=== PATIENT | female | born 1970 | race African-American/Black ===

== ENCOUNTER → 2017-10-13 | Outpatient (CLI) | payer BC, OTHER ==
[~2017-10-13] MED LIST: AMOX-355 PO; ATEN50TA PO; ATN50T PO; CARI350T27 PO; CHOL200014 PO; CHOL20003 PO; CYAN5000 SL; CYCL-97; DICL75TA2 PO; EXEN10PE4 SQ; GLYB1.253 PO; HCTZ12.5T PO; HYDR-2997 PO; HYDR-31; HYDR12.5 PO; INSU300I SC; LISI10TA2 PO; LOVA10TA PO; MECO5000 PO; METF-380; METH4TAB PO; MULT-301 PO; OMEP-10 PO; OMEP40CA36 PO; OXYC10TA7 PO; PHEN37.53; PREN-94 PO; SUCR1TAB PO; SUCR1TAB36 PO
--- NOTE | 2017-10-13 14:16 | Diagnostic Imaging Report ---
INDICATION: Screening. COMPARISON: 08/27/2015, 08/24/2014, and 08/15/2013. TECHNIQUE: Screening digital mammography was performed bilaterally with a Computer Aided Detection (CAD) system. FINDINGS: There is a moderate amount of residual fibroglandular tissue bilaterally. There are a few benign type calcifications. There is no dominant mass, spiculated lesion, or suspicious calcification identified. The skin, nipples, and axillae are unremarkable. IMPRESSION: Benign findings. ACR BI-RADS Category 2: Benign findings. Result letter will be mailed to the patient. Note: At least 10% of breast cancer is not imaged by mammography. Dictated by: Dictated on workstation # [id number]
== END ==
LOC: RAD 09:55
PROVIDERS: ATTEND Internal Medicine
DX: Z12.31 Encounter for screening mammogram for malignant neoplasm of breast (principal)
CPT/HCPCS: 77067

== ENCOUNTER 2018-07-24 14:26 | Emergency (ER) | payer BC ==
[~2018-07-24] VITALS: Ht 160 cm; Wt 142.9 kg
[~2018-07-24 14:26] MED LIST changes: -CHOL200014 PO; +CHOL200085 PO
[2018-07-24 14:59] LABS: BASOPHILS % (AUTO) 0 % (0-10); EOSINOPHILS # (AUTO) 0.5 10^3/uL (0.0-0.3); EOSINOPHILS % (AUTO) 7 % (0-10); HEMATOCRIT 39 % (35-52); HEMOGLOBIN 12.9 G/DL (11.5-16.0); LYMPHOCYTES # (AUTO) 2.4 X 10^3 (1.0-4.0); LYMPHOCYTES % (AUTO) 30 % (12-44); MEAN CORPUSCULAR HEMOGLOBIN 28 PG (25-34); MEAN CORPUSCULAR HGB CONC 33 G/DL (32-36); MEAN CORPUSCULAR VOLUME 86 FL (80-99); MEAN PLATELET VOLUME 10.6 FL (7.4-10.4); MONOCYTES # (AUTO) 0.8 X 10^3 (0.0-1.0); MONOCYTES % (AUTO) 10 % (0-12); NEUTROPHILS # (AUTO) 4.3 X 10^3 (1.8-7.8); NEUTROPHILS % (AUTO) 54 % (42-75); PLATELET COUNT 344 10^3/uL (130-400); RED BLOOD COUNT 4.57 10^6/uL (4.35-5.85); RED CELL DISTRIBUTION WIDTH 14.2 % (10.0-14.5)
[2018-07-24] MEDS ORDERED: ONDANSETRON 4 MG/2 ML (SDV) Z0FRAN IVP ONE (15:00)
[2018-07-24] MEDS ORDERED: ANTACID SUSP 30 ML UDC (MYLANTA) PO ONE (15:00)
[2018-07-24] MEDS ORDERED: LIDOCAINE 2% VISCOUS 15 ML UDC PO ONE (15:00)
[2018-07-24 15:03] LABS: BILIRUBIN,URINE NEGATIVE (NEGATIVE); CLARITY,URINE CLEAR; COLOR,URINE YELLOW; GLUCOSE, URINE (UA) 3+ (NEGATIVE); KETONES,URINE NEGATIVE (NEGATIVE); LEUKOCYTE ESTERASE ,URINE NEGATIVE (NEGATIVE); NITRITE,URINE NEGATIVE (NEGATIVE); PH,URINE 5 (5-9); PROTEIN,URINE NEGATIVE (NEGATIVE); UROBILINOGEN,URINE NORMAL (NORMAL)
--- NOTE | 2018-07-24 15:09 | ED Abdominal Pain ---
General Chief Complaint: Abdominal/GI Problems Stated Complaint: UPPER ABDOMINAL PAIN Nursing Triage Note: PT CO OF ABD PAIN R UPPER ABD AND EPIGASTRIC AREA STARTED THURSDAY HAS NAUSEA BUT NO VOMITING OR DIARRHEA. PT HAS BEEN ON AUGEMENTIN BUT STOPPED THOUGHT IT MIGHT HAVE BEEN CAUSING PAIN Sepsis Screen: No Definite Risk Source of Information: Patient Exam Limitations: No Limitations History of Present Illness Date Seen by Provider: Jul 24, 2018 Time Seen by Provider: 14:43 Initial Comments This 48-year-old woman presents to the emergency room with complaints of upper abdominal pain in the epigastric and right upper quadrant regions. Her gallbladder is surgically absent. She has had associated nausea without vomiting. Symptoms have been present for about 5 days. She denies fever. She denies constipation or diarrhea. She had been taking Augmentin for some sinus symptoms but stopped that a few days ago and symptoms have not improved. Allergies and Home Medications Allergies Coded Allergies: No Known Drug Allergies (Unverified , 04/03/16) Home Medications Amoxicillin/Potassium Clav 1 Each Tablet, 1 EACH PO BID Prescribed by: JUSTINO MAXWELL on 04/04/16 0950 Atenolol 50 Mg Tablet, 50 MG PO DAILY, (Reported) Carisoprodol 350 Mg Tablet, 350 MG PO TID, (Reported) Cholecalciferol (Vitamin D3) 2,000 Unit Capsule, 2,000 UNIT PO DAILY, (Reported) Cyanocobalamin (Vitamin B-12) 5,000 Mcg Tab.subl, 5,000 MCG SL DAILY, (Reported) Diclofenac Sodium 75 Mg Tablet.dr, 75 MG PO BID, (Reported) Glyburide 1.25 Mg Tablet, 1.25 MG PO BID, (Reported) Hydrochlorothiazide 12.5 Mg Capsule, 12.5 MG PO DAILY, (Reported) LAST FILLED #90 07-30-15 Insulin Glargine,Hum.rec.anlog 300 Unit/1 Ml Insuln.pen, 55 UNITS SC HS, ( Reported) LAST FILLED 11-28-15 Lisinopril 10 Mg Tablet, 10 MG PO DAILY, (Reported) Lovastatin 10 Mg Tablet, 10 MG PO DAILY, (Reported) Omeprazole 40 Mg Capsule.dr, 40 MG PO DAILY, (Reported) Oxycodone HCl 10 Mg Tablet, 10 MG PO QID PRN for PAIN, (Reported) Vits #90/Iron Fum/FA 1 Each Tablet, 1 TAB PO DAILY, (Reported) Sucralfate 1 Gm Tablet, 1 GM PO BID, (Reported) LAST FILLED #120 09-04-15 Patient Home Medication List Home Medication List Reviewed: Yes Review of Systems Review of Systems Constitutional: no symptoms reported EENTM: No Symptoms Reported Respiratory: No Symptoms Reported Cardiovascular: No Symptoms Reported Gastrointestinal: See HPI Genitourinary: No Symptoms Reported Musculoskeletal: no symptoms reported Skin: no symptoms reported Psychiatric/Neurological: No Symptoms Reported Endocrine: No Symptoms Reported Hematologic/Lymphatic: No Symptoms Reported Past Vqabmli-Orotji-Nuissd Hx Past Med/Social Hx: Reviewed Nursing Past Med/Soc Hx Patient Social History Alcohol Use: Denies Use Recreational Drug Use: No Smoking Status: Never a Smoker Recent Foreign Travel: No Contact w/Someone Who Travel: No Recent Infectious Disease Expo: No Recent Hopitalizations: No (HYSTERECTOMY AND 2 C-SECTIONS) Physical Abuse: No Sexual Abuse: No Past Medical History Surgeries: Yes ( ABOVE) Gallbladder, Hysterectomy, Orthopedic, Tubal Ligation Respiratory: Yes Sleep Apnea Currently Using CPAP: No Currently Using BIPAP: Yes Cardiac: Yes High Cholesterol, Hypertension Neurological: No Reproductive Disorders: No Female 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 0.0oz. 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, no motor/sensory deficits, alert, normal mood/affect, oriented x 3 Skin: normal color, warm/dry Progress/Results/Core Measures Results/Orders Lab Results Laboratory Tests Test 07/24/18 14:20 07/24/18 14:58 Range/Units White Blood Count 8.0 4.3-11.0 10^3/uL Red Blood Count 4.57 4.35-5.85 10^6/uL Hemoglobin 12.9 11.5-16.0 G/DL Hematocrit 39 35-52 % Mean Corpuscular Volume 86 80-99 FL Mean Corpuscular Hemoglobin 28 25-34 PG Mean Corpuscular Hemoglobin Concent 33 32-36 G/DL Red Cell Distribution Width 14.2 10.0-14.5 % Platelet Count 344 130-400 10^3/uL Mean Platelet Volume 10.6 H 7.4-10.4 FL Neutrophils (%) (Auto) 54 42-75 % Lymphocytes (%) (Auto) 30 12-44 % Monocytes (%) (Auto) 10 0-12 % Eosinophils (%) (Auto) 7 0-10 % Basophils (%) (Auto) 0 0-10 % Neutrophils # (Auto) 4.3 1.8-7.8 X 10^3 Lymphocytes # (Auto) 2.4 1.0-4.0 X 10^3 Monocytes # (Auto) 0.8 0.0-1.0 X 10^3 Eosinophils # (Auto) 0.5 H 0.0-0.3 10^3/uL Basophils # (Auto) 0.0 0.0-0.1 10^3/uL Sodium Level 141 135-145 MMOL/L Potassium Level 4.1 3.6-5.0 MMOL/L Chloride Level 106 98-107 MMOL/L Carbon Dioxide Level 24 21-32 MMOL/L Anion Gap 11 5-14 MMOL/L Blood Urea Nitrogen 14 7-18 MG/DL Creatinine 0.79 0.60-1.30 MG/DL Estimat Glomerular Filtration Rate > 60 BUN/Creatinine Ratio 18 Glucose Level 216 H 70-105 MG/DL Calcium Level 9.4 8.5-10.1 MG/DL Corrected Calcium 9.3 8.5-10.1 MG/DL Total Bilirubin 0.2 0.1-1.0 MG/DL Aspartate Amino Transf (AST/SGOT) 18 5-34 U/L Alanine Aminotransferase (ALT/SGPT) 26 0-55 U/L Alkaline Phosphatase 88 40-136 U/L Total Protein 7.7 6.4-8.2 GM/DL Albumin 4.1 3.2-4.5 GM/DL Lipase 207 H 8-78 U/L Urine Color YELLOW Urine Clarity CLEAR Urine pH 5 5-9 Urine Specific [place] 1.025 H 1.016-1.022 Urine Protein NEGATIVE NEGATIVE Urine Glucose (UA) 3+ H NEGATIVE Urine Ketones NEGATIVE NEGATIVE Urine Nitrite NEGATIVE NEGATIVE Urine Bilirubin NEGATIVE NEGATIVE Urine Urobilinogen NORMAL NORMAL MG/DL Urine Leukocyte Esterase NEGATIVE NEGATIVE Urine RBC (Auto) NEGATIVE NEGATIVE Urine RBC NONE /HPF Urine WBC NONE /HPF Urine Squamous Epithelial Cells NONE /HPF Urine Crystals NONE /LPF Urine Bacteria NEGATIVE /HPF Urine Casts NONE /LPF Urine Mucus NEGATIVE /LPF Urine Culture Indicated NO My Orders Orders - VINCE PATTON MD Cbc With Automated Diff (07/24/18 14:53) Comprehensive Metabolic Panel (07/24/18 14:53) Lipase (07/24/18 14:53) Ua Culture If Indicated (07/24/18 14:53) Saline Lock/Iv-Start (07/24/18 14:53) Ondansetron Injection (Zofran Injectio (07/24/18 15:00) Lidocaine 2% Viscous 15 Ml (Xylocaine Vi (07/24/18 15:00) Antacid Suspension (Mylanta Suspension (07/24/18 15:00) Fentanyl Injection (Sublimaze Injection (07/24/18 15:45) Fentanyl Injection (Sublimaze Injection (07/24/18 15:32) Oxycodone/Apap 5/325mg Tablet (Percocet (07/24/18 16:15) Saline Lock/Iv-Start (07/24/18 16:13) Lactated Ringers (Lr 1000 Ml Iv Solution (07/24/18 16:13) Lactated Ringers (Lr 1000 Ml Iv Solution (07/24/18 16:10) Fentanyl Injection (Sublimaze Injection (07/24/18 17:15) Ct Abdomen/Pelvis W (07/24/18 17:13) Iohexol Injection (Omnipaque 350 Mg/Ml 1 (07/24/18 17:30) Sodium Chloride Flush (Catheter Flush Sy (07/24/18 17:30) Ns (Ivpb) (Sodium Chloride 0.9%) (07/24/18 17:30) Pharmacy Communication (Pharmacy Communi (07/24/18 17:24) Rx-Ondansetron Po (Rx-Zofran Po) (07/24/18 18:23) Medications Given in ED Current Medications Medications Dose Ordered Sig/Volodymyr Route Start Time Stop Time Status Last Admin Dose Admin Al Hydrox/Mg Hydrox/Simethicone 30 ml ONCE ONCE PO 07/24/18 15:00 07/24/18 15:01 DC 07/24/18 15:10 30 ML Fentanyl Citrate 50 mcg ONCE ONCE IVP 07/24/18 15:45 07/24/18 15:46 DC 07/24/18 15:38 50 MCG Fentanyl Citrate 75 mcg ONCE ONCE IVP 07/24/18 17:15 07/24/18 17:16 DC 07/24/18 17:30 75 MCG Iohexol 100 ml ONCE ONCE IV 07/24/18 17:30 07/24/18 17:31 DC 07/24/18 17:49 100 ML Lactated Ringer's 1,000 ml @ 0 mls/hr Q0M ONCE IV 07/24/18 16:13 07/24/18 16:15 DC 07/24/18 16:17 1,000 MLS/HR Lidocaine HCl 15 ml ONCE ONCE PO 07/24/18 15:00 07/24/18 15:01 DC 07/24/18 15:10 15 ML Ondansetron HCl 8 mg ONCE ONCE IVP 07/24/18 15:00 07/24/18 15:01 DC 07/24/18 15:10 8 MG Oxycodone/ Acetaminophen 1 tab ONCE ONCE PO 07/24/18 16:15 07/24/18 16:16 DC 07/24/18 16:15 1 TAB Sodium Chloride 10 ml NEEDED PRN IV 07/24/18 17:30 07/24/18 17:49 10 ML Sodium Chloride 250 ml ONCE ONCE IV 07/24/18 17:30 07/24/18 17:31 DC 07/24/18 17:49 80 ML Vital Signs/I&O 07/24/18 14:35 Temp 98.0 Pulse 84 Resp 18 B/P (MAP) 5/3 (4) Pulse Ox 99 Blood Pressure Mean: 4 Progress Progress Note #1: Time: 17:15 Progress Note GI cocktail did not improve her pain. In fact her pain seemed to intensify. Patient was initially given 50 g of fentanyl by IV route. This was followed by oral Percocet to see if symptoms could be managed with oral medications in preparation for discharge home. However, pain intensified and she was given an additional 75 g of fentanyl IV. Patient has received a total of 125 g of fentanyl to treat her pain. Because of the intensity of her pain, CT scan was felt appropriate. Patient is agreeable. There was a mild increase in lipase and early pancreatitis is also a consideration. 1 L of LR is infusing. Progress Note #2: Time: 18:26 Progress Note Patient's pain is now controlled. CT scan only showed fatty infiltrates of the liver. No other acute abnormalities were identified. Patient would now like to try returning home with a graduated GI rest. Cause of her elevated lipase is uncertain. Some of her medications including diclofenac, omeprazole, and hydrochlorothiazide to have pancreatitis listed as adverse reactions. Fatty liver disease could also explain her right upper quadrant pain. Diagnostic Imaging Diagonstic Imaging: CT Plain Films/CT/US/NM/MRI: abdomen, pelvis Comments CT abdomen and pelvis viewed by me and report reviewed. See report below: NAME: MARC GREEN REC#: [id number] PT STATUS: REG ER : 1970 PHYSICIAN: VINCE PATTON MD ADMIT DATE: 07/24/18/ER Draft Date of Exam:07/24/18 CT ABDOMEN/PELVIS W PROCEDURE: CT abdomen and pelvis with contrast. TECHNIQUE: Multiple contiguous axial images were obtained through the abdomen and pelvis after administration of intravenous contrast. INDICATION: Sharp right upper quadrant pain for four days. Nausea. Diarrhea. FINDINGS: There are mild fatty changes of the liver with no focal liver abnormality seen. Gallbladder is absent. The bile ducts are not dilated. The spleen, pancreas and adrenals are normal. The kidneys, ureters and bladder are normal. No acute bowel abnormality is seen. There is no free intraperitoneal air or fluid. There is no acute bony abnormality. IMPRESSION: There are fatty infiltrates of the liver with no acute abnormality seen. Dictated on workstation # [id number] Dict: 07/24/18 1759 Trans: 07/24/18 1804 [facility] [id number] Interpreted by: ROSALVA MURRY MD Departure Impression Primary Impression: Epigastric pain Additional Impressions: Right upper quadrant pain Nausea Fatty infiltration of liver Elevated lipase Disposition: 01 HOME, SELF-CARE Condition: Improved Departure-Patient Inst. Decision time for Depature: 18:27 Referrals: JUSTINO MAXWELL DO (PCP/Family) Primary Care Physician Patient Instructions: Nonalcoholic Fatty Liver Disease (DC) Add. Discharge Instructions: Do not eat or drink tonight. Tomorrow observe a clear liquid diet for 24 hours. Then gradually advance your diet with a small amount of bland food as tolerated. Avoid fatty or greasy foods, alcohol, spicy foods, or anything else that irritate your stomach. Return to care if symptoms worsen again. Uses Zofran (ondansetron) dissolved under the tongue every 4 hours as needed for nausea and vomiting. You may use Percocet every 4 hours as needed for management of pain. Follow-up with your primary care provider as soon as possible. All discharge instructions reviewed with patient and/or family. Voiced understanding. Scripts Ondansetron (Zofran Odt) 4 Mg Tab.rapdis 4 MG SL Q4H PRN for NAUSEA/VOMITING-1ST LINE, #10 TAB Prov: VINCE PATTON MD 07/24/18 Hydrocodone/Acetaminophen (Hydrocodone-Acetamin 5-325 mg) 1 Each Tablet 1 EACH PO Q4-6HR PRN for PAIN-MODERATE, #10 TAB Prov: VINCE PATTON MD 07/24/18 Copy Copies To 1: JUSTINO MAXWELL JOSHUA T MD Jul 24, 2018 15:09
[2018-07-24 15:13] LABS: ALANINE AMINOTRANSFERASE 26 U/L (0-55); ALBUMIN 4.1 GM/DL (3.2-4.5); ALKALINE PHOSPHATASE 88 U/L (40-136); BILIRUBIN,TOTAL 0.2 MG/DL (0.1-1.0); BUN/CREATININE RATIO 18; CALCIUM 9.4 MG/DL (8.5-10.1); CARBON DIOXIDE 24 MMOL/L (21-32); CHLORIDE 106 MMOL/L (98-107); CREATININE SERUM 0.79 MG/DL (0.60-1.30); GFR ESTIMATED > 60; GLUCOSE 216 MG/DL (70-105); LIPASE 207 U/L (8-78); POTASSIUM 4.1 MMOL/L (3.6-5.0); SODIUM 141 MMOL/L (135-145); TOTAL PROTEIN 7.7 GM/DL (6.4-8.2)
[2018-07-24 15:27] LABS: BACTERIA,URINE NEGATIVE /HPF
[2018-07-24] MEDS ORDERED: fentaNYL INJECTION 100 MCG/2 ML AMP ONE (15:32)
[2018-07-24] MEDS ORDERED: fentaNYL INJECTION 100 MCG/2 ML AMP IVP ONE ×2 (15:45→17:15)
[2018-07-24] MEDS ORDERED: LACTATED RINGERS 1,000 ML IV ONE ×2 (16:10→16:13)
[2018-07-24] MEDS ORDERED: oxyCODONE/APAP 5/325MG (PERCOCET 5) TABLET PO ONE (16:15)
[2018-07-24] MEDS ORDERED: CATHETER FLUSH 10 ML SYR IV PRN (17:30)
[2018-07-24] MEDS ORDERED: NS 250 ML (IVPB) BAG IV ONE (17:30)
[2018-07-24] MEDS ORDERED: IOHEXOL 350 MG/ML 100 ML (OMNIPAQUE 350) VIAL IV ONE (17:30)
--- NOTE | 2018-07-24 18:05 | Diagnostic Imaging Report ---
PROCEDURE: CT abdomen and pelvis with contrast. TECHNIQUE: Multiple contiguous axial images were obtained through the abdomen and pelvis after administration of intravenous contrast. INDICATION: Sharp right upper quadrant pain for four days. Nausea. Diarrhea. FINDINGS: There are mild fatty changes of the liver with no focal liver abnormality seen. Gallbladder is absent. The bile ducts are not dilated. The spleen, pancreas and adrenals are normal. The kidneys, ureters and bladder are normal. No acute bowel abnormality is seen. There is no free intraperitoneal air or fluid. There is no acute bony abnormality. IMPRESSION: There are fatty infiltrates of the liver with no acute abnormality seen. Dictated by: Dictated on workstation # [id number]
[2018-07-24] MEDS ORDERED: RX-ONDANSETRON 4 MG ODT (ZOFRAN) PPK #4 SL STA (18:23)
[2018-07-24] MEDS ORDERED: RX-OXYCODONE/APAP 5-325 MG #4 TAB PK PO PRN (18:30)
[2018-07-24] MEDS ORDERED: ONDA4TAB8 SL (18:31)
[2018-07-24] MEDS ORDERED: HYDR-3812 PO (18:31)
[2018-07-24] MEDS ORDERED: RX-OXYCODONE/APAP 5-325 MG #4 TAB PK PO ONE (18:55)
[2018-07-24 18:56] VITALS: BP 165/78
== END 2018-07-24 18:56 | disposition home or self-care (01) ==
LOC: EDUNIT# 14:26 → ER 14:28
DX: K76.0 Fatty (change of) liver, not elsewhere classified (principal); R10.13 Epigastric pain; R74.8 Abnormal levels of other serum enzymes; G47.30 Sleep apnea, unspecified; E78.00 Pure hypercholesterolemia, unspecified; I10 Essential (primary) hypertension; K21.9 Gastro-esophageal reflux disease without esophagitis; E11.9 Type 2 diabetes mellitus without complications; Z79.4 Long term (current) use of insulin; Z90.89 Acquired absence of other organs; Z90.710 Acquired absence of both cervix and uterus; Z98.890 Other specified postprocedural states; Z98.51 Tubal ligation status
CPT/HCPCS: 36415; 74177; 80053; 81000; 83690; 85025

== ENCOUNTER 2018-07-26 10:38 | Inpatient (IN) | payer BC ==
[~2018-07-26] VITALS: Ht 160 cm; Wt 149.7 kg
[~2018-07-26 10:38] MED LIST changes: +HYDR-3812 PO; +ONDA4TAB8 SL
[2018-07-26 11:23] VITALS: BP 158/83
[2018-07-26] MEDS: NS IV 1000 ML 1,000 ML IV SCH ×2 (12:14→20:24)
[2018-07-26] MEDS ORDERED: CATHETER FLUSH 10 ML SYR IV PRN (12:15)
[2018-07-26 12:19] LABS: BILIRUBIN,URINE NEGATIVE (NEGATIVE); CLARITY,URINE CLEAR; COLOR,URINE YELLOW; GLUCOSE, URINE (UA) 4+ (NEGATIVE); KETONES,URINE NEGATIVE (NEGATIVE); LEUKOCYTE ESTERASE ,URINE NEGATIVE (NEGATIVE); NITRITE,URINE NEGATIVE (NEGATIVE); PH,URINE 6 (5-9); PROTEIN,URINE 1+ (NEGATIVE); UROBILINOGEN,URINE NORMAL (NORMAL)
[2018-07-26] MEDS: ONDANSETRON 4 MG/2 ML (SDV) Z0FRAN IVP PRN ×3 (12:23→19:43)
[2018-07-26] MEDS: HYDROmorphone 2 MG/ML VIAL (DILAUDID) IV PRN ×3 (12:24→23:05)
[2018-07-26 12:27] LABS: BACTERIA,URINE TRACE /HPF
[2018-07-26 12:42] LABS: AMPHETAMINE SCREEN, URINE NEGATIVE (NEGATIVE); BARBITURATE SCREEN URINE NEGATIVE (NEGATIVE); BENZODIAZEPINES SCREEN URINE NEGATIVE (NEGATIVE); CANNABINOID SCREEN, URINE NEGATIVE (NEGATIVE); COCAINE SCREEN URINE NEGATIVE (NEGATIVE); METHADONE STAT NEGATIVE (NEGATIVE); METHAMPHETAMINE SCREEN URINE S NEGATIVE (NEGATIVE); OPIATE SCREEN URINE NEGATIVE (NEGATIVE); OXYCODONE STAT NEGATIVE (NEGATIVE); PROPOXYPHENE STAT NEGATIVE (NEGATIVE); TRICYCLIC ANTIDEPRESSANTS SCRE NEGATIVE (NEGATIVE)
[2018-07-26 13:03] LABS: BASOPHILS % (AUTO) 0 % (0-10); EOSINOPHILS # (AUTO) 0.4 10^3/uL (0.0-0.3); EOSINOPHILS % (AUTO) 5 % (0-10); HEMATOCRIT 40 % (35-52); HEMOGLOBIN 13.2 G/DL (11.5-16.0); LYMPHOCYTES # (AUTO) 1.9 X 10^3 (1.0-4.0); LYMPHOCYTES % (AUTO) 25 % (12-44); MEAN CORPUSCULAR HEMOGLOBIN 28 PG (25-34); MEAN CORPUSCULAR HGB CONC 33 G/DL (32-36); MEAN CORPUSCULAR VOLUME 84 FL (80-99); MEAN PLATELET VOLUME 10.3 FL (7.4-10.4); MONOCYTES # (AUTO) 0.6 X 10^3 (0.0-1.0); MONOCYTES % (AUTO) 8 % (0-12); NEUTROPHILS # (AUTO) 4.8 X 10^3 (1.8-7.8); NEUTROPHILS % (AUTO) 62 % (42-75); PLATELET COUNT 345 10^3/uL (130-400); RED BLOOD COUNT 4.73 10^6/uL (4.35-5.85); RED CELL DISTRIBUTION WIDTH 14.1 % (10.0-14.5); WHITE BLOOD COUNT 7.7 10^3/uL (4.3-11.0)
[2018-07-26 13:23] LABS: ERYTHROCYTE SEDIMENTATION RATE 37 MM/HR (0-20)
[2018-07-26 13:24] LABS: ALANINE AMINOTRANSFERASE 22 U/L (0-55); ALBUMIN 4.1 GM/DL (3.2-4.5); ALKALINE PHOSPHATASE 84 U/L (40-136); AMYLASE 79 U/L (25-125); BILIRUBIN,TOTAL 0.3 MG/DL (0.1-1.0); BUN/CREATININE RATIO 12; CALCIUM 9.9 MG/DL (8.5-10.1); CARBON DIOXIDE 24 MMOL/L (21-32); CHLORIDE 102 MMOL/L (98-107); CREATININE SERUM 0.76 MG/DL (0.60-1.30); GFR ESTIMATED > 60; GLUCOSE 197 MG/DL (70-105); LIPASE 147 U/L (8-78); POTASSIUM 4.2 MMOL/L (3.6-5.0); SODIUM 138 MMOL/L (135-145); TOTAL PROTEIN 7.9 GM/DL (6.4-8.2)
[2018-07-26] MEDS ORDERED: GLYB2.5T4 PO (13:36)
[2018-07-26] MEDS: ENOXAPARIN 60 MG/0.6 ML (LOVENOX) SYR SC SCH (14:06)
--- NOTE | 2018-07-26 15:26 | Diagnostic Imaging Report ---
INDICATION: Right upper quadrant pain. TIME OF EXAMINATION: 2:53 PM. FINDINGS: There are surgical clips in the right upper quadrant. No free air is identified. The bowel gas pattern appears nonobstructive. There is a large amount of stool in the right colon. No pathologic calcifications are seen. IMPRESSION: Moderate stool in the right colon. No other significant abnormality is detected. Dictated by: Dictated on workstation # [id number]
--- NOTE | 2018-07-26 15:27 | Diagnostic Imaging Report ---
INDICATION: Right upper quadrant pain. TIME OF EXAMINATION: 2:48 PM. COMPARISON: 04/03/2016. FINDINGS: The heart size is normal. The pulmonary vascularity is unremarkable. The lungs are clear. No infiltrate, effusion, or pneumothorax is detected. IMPRESSION: No acute cardiopulmonary process is detected. Dictated by: Dictated on workstation # [id number]
[2018-07-26 15:38] VITALS: BP 166/70
[2018-07-26] MEDS ORDERED: FLU QUADRIvalent (5+ YOA) 2018-2019 (AFLURIA) 0.5 ML IM ONE (16:45)
--- NOTE | 2018-07-26 18:09 | Consultation ---
History of Present Illness History of Present Illness Patient Consulted On(amie/time) 07/26/18 18:04 Date Seen by Provider: Jul 26, 2018 Time Seen by Provider: 18:04 Reason for Visit: increasing epigastric pain of 6 days duration History of Present Illness sudden onset of epigastric pain about 6 days ago, leading to an ER evaluation revealing elevated lipase, suggestive of pancreatitis. She reports having undergone laparoscopic cholecystectomy to manage dyskinesia about 8 years ago. Currently, her LFTs are normal and therefore it is less likely that pancreatitis is related to primary choledocholithiasis Allergies and Home Medications Allergies Coded Allergies: No Known Drug Allergies (Unverified , 04/03/16) Home Medications Atenolol 50 Mg Tablet, 50 MG PO DAILY, (Reported) Carisoprodol 350 Mg Tablet, 350 MG PO TID, (Reported) Diclofenac Sodium 75 Mg Tablet.dr, 75 MG PO BID, (Reported) Glyburide 2.5 Mg Tablet, 2.5 MG PO BID, (Reported) Hydrochlorothiazide 12.5 Mg Capsule, 12.5 MG PO DAILY, (Reported) Hydrocodone/Acetaminophen 1 Each Tablet, 1 EACH PO Q4-6HR PRN for PAIN-MODERATE Prescribed by: VINCE VEGA on 07/24/181830 Insulin Glargine,Hum.rec.anlog 300 Unit/1 Ml Insuln.pen, 64 UNITS SC HS, ( Reported) Lisinopril 10 Mg Tablet, 10 MG PO DAILY, (Reported) Lovastatin 10 Mg Tablet, 10 MG PO DAILY, (Reported) Omeprazole 40 Mg Capsule.dr, 40 MG PO DAILY, (Reported) Ondansetron 4 Mg Tab.rapdis, 4 MG SL Q4H PRN for NAUSEA/VOMITING-1ST LINE Prescribed by: VINCE VEGA on 07/24/181830 Oxycodone HCl 10 Mg Tablet, 10 MG PO QID PRN for PAIN-SEVERE, (Reported) Sucralfate 1 Gm Tablet, 1 GM PO BID, (Reported) LAST FILLED #120 03-04-18 Patient Home Medication List Home Medication List Reviewed: Yes Past Urhrqda-Ycihqh-Dmohhv Hx Patient Social History Alcohol Use: Rarely Uses Number of Drinks Today: 0 Recreational Drug Use: No Smoking Status: Never a Smoker Recent Foreign Travel: No Contact w/Someone Who Travel: No Recent Infectious Disease Expo: No Recent Hopitalizations: No (HYSTERECTOMY AND 2 C-SECTIONS) Seasonal Allergies Seasonal Allergies: Yes Past Medical History Surgeries: Yes ( ABOVE) Gallbladder, Hysterectomy, Orthopedic, Tubal Ligation Respiratory: Yes Sleep Apnea Currently Using CPAP: Yes Currently Using BIPAP: Yes Cardiac: Yes High Cholesterol, Hypertension Neurological: No Reproductive Disorders: No Female 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 Sexually Transmitted Disease: No HIV/AIDS: No Genitourinary: Yes (Incontinence-leaking) Gastrointestinal: Yes Gastroesophageal Reflux Musculoskeletal: Yes Arthritis, Chronic Back Pain Endocrine: Yes Diabetes, Non-Insulin dep Loss of Vision: Denies Hearing Impairment: Denies Cancer: No Psychosocial: No Integumentary: No Blood Disorders: No Family Medical History DENIES Review of Systems-General EENTM: no symptoms reported Respiratory: no symptoms reported Cardiovascular: no symptoms reported Gastrointestinal: see HPI Genitourinary: no symptoms reported Musculoskeletal: no symptoms reported Skin: no symptoms reported Psychiatric/Neurological: No Symptoms Reported Physical Exam-General Problems Physical Exam Vital Signs Vital Signs - First Documented 07/26/18 11:23 Temp 98.7 Pulse 94 Resp 16 B/P (MAP) 158/83 (108) Pulse Ox 93 O2 Delivery Room Air Capillary Refill : General Appearance: no apparent distress Respiratory: lungs clear Cardiovascular: regular rate, rhythm Gastrointestinal: tenderness Neurologic/Psychiatric: alert, oriented x 3 Skin: warm/dry Comments mild epigastric tenderness with no evidence of peritonitis. No trocar site hernia Assessment/Plan Assessment/Plan Admission Diagnosis/Plan lady with epigastric pain with slight elevation of lipase. No radiologic evidence of pancreatic inflammation or peripancreatic fluid collections ; reasonable to treat conservatively. If pain persists, upper endoscopy during the current admission would be in order. In the absence of gallstones, it may be prudent to obtain an endoscopic ultrasound as an outpatient, once her acute symptoms improve. Admission Status: Observation Clinical Quality Measures DVT/VTE Risk/Contraindication: Risk Factor Score Per Nursin RFS Level Per Nursing on Admit: 2=Moderate NAHID ARENAS MD Jul 26, 2018 18:09
[2018-07-26 20:34] VITALS: BP 131/87
[2018-07-26] MEDS ORDERED: SIMvastatin 10 MG (ZOCOR) TAB PO SCH (21:00)
[2018-07-26] MEDS ORDERED: inSUlin ASPART (NovoLOG) 1 UNIT/0.01 ML (CHARGE PER UNIT) SC SCH (21:00)
[2018-07-26] MEDS: inSUlin ASPART (NovoLOG) 1 UNIT/0.01 ML (CHARGE PER UNIT) SC SCH (21:07)
[2018-07-27 00:05] VITALS: BP 171/82
[2018-07-27] MEDS: ONDANSETRON 4 MG/2 ML (SDV) Z0FRAN IVP PRN ×3 (00:36→14:45)
[2018-07-27 04:10] VITALS: BP 156/87
[2018-07-27] MEDS: NS IV 1000 ML 1,000 ML IV SCH (04:26)
[2018-07-27] MEDS: HYDROmorphone 2 MG/ML VIAL (DILAUDID) IV PRN (05:56)
[2018-07-27] MEDS: glyBURIDE 2.5 MG (MICRONASE) TAB PO SCH ×2 (05:59→16:34)
[2018-07-27] MEDS: inSUlin ASPART (NovoLOG) 1 UNIT/0.01 ML (CHARGE PER UNIT) SC SCH ×4 (06:00→21:22)
[2018-07-27 06:12] LABS: BASOPHILS % (AUTO) 0 % (0-10); EOSINOPHILS # (AUTO) 0.4 10^3/uL (0.0-0.3); EOSINOPHILS % (AUTO) 4 % (0-10); HEMATOCRIT 37 % (35-52); HEMOGLOBIN 11.7 G/DL (11.5-16.0); LYMPHOCYTES # (AUTO) 1.7 X 10^3 (1.0-4.0); LYMPHOCYTES % (AUTO) 22 % (12-44); MEAN CORPUSCULAR HEMOGLOBIN 27 PG (25-34); MEAN CORPUSCULAR HGB CONC 32 G/DL (32-36); MEAN CORPUSCULAR VOLUME 87 FL (80-99); MEAN PLATELET VOLUME 10.1 FL (7.4-10.4); MONOCYTES # (AUTO) 0.9 X 10^3 (0.0-1.0); MONOCYTES % (AUTO) 11 % (0-12); NEUTROPHILS # (AUTO) 4.9 X 10^3 (1.8-7.8); NEUTROPHILS % (AUTO) 62 % (42-75); PLATELET COUNT 332 10^3/uL (130-400); RED BLOOD COUNT 4.29 10^6/uL (4.35-5.85); RED CELL DISTRIBUTION WIDTH 14.2 % (10.0-14.5); WHITE BLOOD COUNT 7.9 10^3/uL (4.3-11.0)
[2018-07-27 06:34] LABS: ALANINE AMINOTRANSFERASE 23 U/L (0-55); ALBUMIN 3.6 GM/DL (3.2-4.5); ALKALINE PHOSPHATASE 73 U/L (40-136); AMYLASE 59 U/L (25-125); BILIRUBIN,TOTAL 0.5 MG/DL (0.1-1.0); BUN/CREATININE RATIO 13; CALCIUM 9.1 MG/DL (8.5-10.1); CARBON DIOXIDE 24 MMOL/L (21-32); CHLORIDE 103 MMOL/L (98-107); GFR ESTIMATED > 60; GLUCOSE 169 MG/DL (70-105); LIPASE 123 U/L (8-78); SODIUM 137 MMOL/L (135-145); TOTAL PROTEIN 6.9 GM/DL (6.4-8.2)
[2018-07-27] MEDS ORDERED: PANTOPRAZOLE 40 MG (PROTONIX) TAB PO SCH (07:00)
[2018-07-27] MEDS ORDERED: SUCRALFATE 1 GM (CARAFATE) TAB PO SCH (07:00)
[2018-07-27 08:00] VITALS: BP 154/89
--- NOTE | 2018-07-27 08:53 | History & Physical-Hospitalist ---
History of Present Illness HPI/Chief Complaint CC: Abdominal pain with nausea and vomiting with acute pancreatitis failed outpt treatment HPI: This is a 48-year-old -H[place] female clinic patient of mine for the last 14 years with a past medical history of obesity, obstructive sleep apnea, diabetes mellitus, hypertension, hyperlipidemia, and chronic back pain on chronic narcotic dependence who presented to my clinic 2 days after an ER visit for acute pancreatitis. She is a lifetime nondrinker of alcohol and has not had any significant medication changes recently except for the addition of Augmentin a week and a half before for sinus infection prescribed by me. Apparently she started having abdominal pain on Thursday thought it was the Augmentin stop the Augmentin still had nausea and vomiting and eventually presented to the ER and Thursday found to have elevated lipase with negative CT scan without source of considering she had her gallbladder removed 8 years ago she was given pain medication IV fluids and discharged but she failed that and was in need of hospitalization for at least 3-7 days for bowel rest IV fluid support and pain control. Dr. Lerner has been consulted for abdominal pain and abdominal x-ray was reviewed and patient will be treated conservatively with pain control and IV fluids in the meantime. She did have an episode of emesis this morning after clear liquids were given so she has been placed on nothing by mouth status once again but her blood pressure is elevated so we will give Norvasc with a sip of water. Lipase has decreased slightly and overall status has been unchanged and Dr. Lerner will evaluate her for possible scope evaluation and/or repeat imaging. Source: patient Exam Limitations: no limitations Date Seen 07/27/18 Time Seen by a Provider: 09:00 Attending Physician Ashley Colmenares DO PCP Ashley Colmenares DO Referring Physician Date of Admission Jul 26, 2018 at 11:39 Home Medications & Allergies Home Medications Reviewed patient Home Medication Reconciliation performed by pharmacy medication reconciliations solid waste technician and/or nursing. Patients Allergies have been reviewed. Allergies Allergies Coded Allergies No Known Drug Allergies (Unverified04/03/16) Past Toonfzv-Xfanlt-Mslwtz Hx Past Med/Social Hx: Reviewed Nursing Past Med/Soc Hx, Reviewed and Corrections made Patient Social History Marrital Status: Employed/Student: employed Alcohol Use: Rarely Uses Number of Drinks Today: 0 Recreational Drug Use: No Smoking Status: Never a Smoker Physical Abuse Screen: No Sexual Abuse: No Recent Foreign Travel: No Contact w/other who traveled: No Recent Hopitalizations: No (HYSTERECTOMY AND 2 C-SECTIONS) Recent Infectious Disease Expo: No Seasonal Allergies Seasonal Allergies: Yes Past Medical History Surgeries: Gallbladder, Hysterectomy, Orthopedic, Tubal Ligation Respiratory: Sleep Apnea Currently Using CPAP: Yes Currently Using BIPAP: Yes Cardiac: High Cholesterol, Hypertension Reproductive: No Sexually Transmitted Disease: No HIV/AIDS: No Female Reproductive Disorders: Denies Hysterectomy Gastrointestinal: Gastroesophageal Reflux Musculoskeletal: Arthritis, Chronic Back Pain Endocrine: Diabetes, Non-Insulin dep Loss of Vision: Denies Hearing Impairment: Denies History of Blood Disorders: No Family History DENIES Review of Systems Constitutional: weakness EENTM: no symptoms reported Respiratory: no symptoms reported Cardiovascular: no symptoms reported Gastrointestinal: abdominal pain (RUQ), loss of appetite, nausea, vomiting Genitourinary: no symptoms reported Musculoskeletal: no symptoms reported Skin: no symptoms reported Psychiatric/Neurological: No Symptoms Reported All Other Systems Reviewed Negative Unless Noted: Yes Physical Exam Physical Exam Vital Signs Vital Signs - First Documented 07/26/18 11:23 Temp 98.7 Pulse 94 Resp 16 B/P (MAP) 158/83 (108) Pulse Ox 93 O2 Delivery Room Air Capillary Refill : Height, Weight, BMI Height: 5'3.00" Weight: 330lbs. 0.0oz. [id number]; 58.5 BMI Method:Stated General Appearance: No Apparent Distress, WD/WN, Chronically ill, Obese Eyes: Bilateral Eye Normal Inspection, Bilateral Eye PERRL HEENT: PERRL/EOMI, Normal ENT Inspection, Pharynx Normal Neck: Full Range of Motion, Normal Inspection, Non Tender, Supple, Carotid Bruit Respiratory: Chest Non Tender, Lungs Clear, Normal Breath Sounds, No Accessory Muscle Use, No Respiratory Distress Cardiovascular: Regular Rate, Rhythm, No Edema, No Gallop, No JVD, No Murmur, Normal Peripheral Pulses Gastrointestinal: Normal Bowel Sounds, No Organomegaly, No Pulsatile Mass, Soft , Tenderness Back: Normal Inspection, No CVA Tenderness, No Vertebral Tenderness Extremity: Normal Capillary Refill, Normal Inspection, Normal Range of Motion, Non Tender, No Calf Tenderness, No Pedal Edema Neurologic/Psychiatric: Alert, Oriented x3, No Motor/Sensory Deficits, Normal Mood/Affect Skin: Normal Color, Warm/Dry Lymphatic: No Adenopathy Results Results/Procedures Labs Laboratory Tests 07/26/18 12:49 07/27/18 05:49 Patient resulted labs reviewed. Assessment/Plan Admission Diagnosis Assessment: Refractory abdominal pain due to acute pancreatitis failed outpatient treatment Severe nausea and vomiting unable to tolerate oral fluids Diabetes mellitus insulin-dependent Hypertension Hyperlipidemia Obstructive sleep apnea on treatment Obesity Chronic back pain on narcotics Plan: Change IV fluids from normal saline to Clinimix for peripheral nutrition Pain control Await Dr. Lerner recommendations Scopolamine patch for nausea MPO except for amlodipine 5 mg daily Admission Status: Inpatient Order (span 2 midnights) Reason for Inpatient Admission: Severe pancreatitis will require at least 5 days inpt with NPO status and IVF and IV pain meds Diagnosis/Problems Diagnosis/Problems (1) Pancreatitis Status: Acute Qualifiers: Chronicity: acute Pancreatitis type: unspecified pancreatitis type Acute pancreatitis complication: uninfected necrosis Qualified Codes: K85.91 - Acute pancreatitis with uninfected necrosis, unspecified (2) Abdominal pain Status: Acute Qualifiers: Abdominal location: epigastric Qualified Codes: R10.13 - Epigastric pain (3) Vomiting Status: Acute Qualifiers: Vomiting type: unspecified Vomiting Intractability: intractable Nausea presence: with nausea Qualified Codes: R11.2 - Nausea with vomiting, unspecified (4) Diabetes mellitus Status: Chronic Qualifiers: Diabetes mellitus type: type 2 Diabetes mellitus joint terminal attack controller insulin use: with prison use Diabetes mellitus complication status: with kidney complications Diabetes mellitus complication detail: with chronic kidney disease Chronic kidney disease stage: unspecified stage Qualified Codes: E11.22 - Type 2 diabetes mellitus with diabetic chronic kidney disease; Z79.4 - terminal press operator (current) use of insulin (5) JUNA RAMON on CPAP Status: Chronic (6) Obesity Status: Chronic Qualifiers: Obesity type: due to excess calories Obesity classification: adult class 3 (BMI >= 40) Serious obesity comorbidity presence: with serious comorbidity Body mass index: BMI 50.0-59.9 Qualified Codes: E66.01 - Morbid (severe) obesity due to excess calories; Z68.43 - Body mass index (BMI) 50-59.9, adult (7) Hypertension Status: Chronic Qualifiers: Hypertension type: essential hypertension Qualified Codes: I10 - Essential (primary) hypertension (8) Hyperlipidemia Status: Chronic Qualifiers: Hyperlipidemia type: mixed hyperlipidemia Qualified Codes: E78.2 - Mixed hyperlipidemia (9) Back pain, chronic Status: Chronic Qualifiers: Back pain location: low back pain Back pain laterality: unspecified Sciatica presence: unspecified whether sciatica present Qualified Codes: M54.5 - Low back pain; G89.29 - Other chronic pain (10) Narcotic dependency, continuous Status: Chronic (11) Fever Status: Acute Qualifiers: Fever type: unspecified Qualified Codes: R50.9 - Fever, unspecified Clinical Quality Measures DVT/VTE Risk/Contraindication: Risk Factor Score Per Nursin RFS Level Per Nursing on Admit: 2=Moderate ASHLEY COLMENARES DO Jul 27, 2018 08:53
[2018-07-27] MEDS ORDERED: amLODIPine 5 MG (NORVASC) TAB PO NR (09:00)
[2018-07-27] MEDS ORDERED: SCOPOLAMINE 1.5 MG (TRANSDERM-SCOP) PATCH TD NR (09:00)
[2018-07-27] MEDS ORDERED: lisINopril 10 MG (PRINIVIL) TABLET PO SCH (09:00)
[2018-07-27] MEDS: AA 4.25% W/LYTES IN D5W IV SOL 1,000 ML IV SCH ×3 (09:15→20:04)
[2018-07-27] MEDS: ATENOLOL 50 MG (TENORMIN) TAB PO SCH (09:16)
[2018-07-27] MEDS: ENOXAPARIN 60 MG/0.6 ML (LOVENOX) SYR SC SCH (09:16)
--- NOTE | 2018-07-27 10:01 | Progress Note (SOAP) ---
Subjective Date Seen by a Provider: Jul 27, 2018 Time Seen by a Provider: 09:56 Subjective/Events-last exam Epigastric pain persists. Lipase trending down. Unable to tolerate clear liquids Review of Systems General: No Chills, No Night Sweats, No Fatigue, No Malaise HEENT: No Head Aches, No Eye Pain, No Ear Pain, No Dysphasia, No Sinus Congestion, No Post Nasal Drip, No Sore Throat Pulmonary: No Dyspnea, No Cough, No Pleuritic Chest Pain Cardiovascular: No: Chest Pain, Palpitations, Orthopnea, Paroxysmal Noc. Dyspnea, Edema, Lt Headedness Gastrointestinal: Nausea, Vomiting, Abdominal Pain Genitourinary: No Dysuria, No Frequency, No Incontinence, No Hematuria, No Retention Neurological: No: Weakness, Numbness, Incoordination, Change in speech, Confusion, Seizures, Other Focused Exam Lactate Level 07/26/18 12:49: Lactic Acid Level 0.89 Objective Exam Vital Signs Date Time Temp Pulse Resp B/P (MAP) Pulse Ox O2 Delivery O2 Flow Rate FiO2 07/27/18 08:00 98.5 86 22 154/89 (110) 90 Room Air 07/27/18 04:10 98.0 85 19 156/87 (110) 96 Room Air 07/27/18 00:05 97.5 91 18 171/82 (111) 95 Room Air 07/26/18 20:34 99.2 91 20 131/87 (102) 94 Room Air 07/26/18 15:38 98.5 83 20 166/70 (102) 95 Room Air 07/26/18 11:28 Room Air 07/26/18 11:23 98.7 94 16 158/83 (108) 93 Room Air I & O 07/27/18 07:00 Intake Total 3180 ml Output Total 478 ml Balance 2702 ml Capillary Refill : General Appearance: No Apparent Distress Respiratory: Lungs Clear Cardiovascular: Regular Rate, Rhythm Gastrointestinal: tenderness Neurologic/Psychiatric: Alert, Oriented x3 Skin: Warm/Dry Other comments Localized tenderness over the epigastric region Results Lab Laboratory Tests 07/26/18 12:10: Urine Color YELLOW, Urine Clarity CLEAR, Urine pH 6, Urine Specific [place] 1.020, Urine Protein 1+H, Urine Glucose (UA) 4+H, Urine Ketones NEGATIVE, Urine Nitrite NEGATIVE, Urine Bilirubin NEGATIVE, Urine Urobilinogen NORMAL, Urine Leukocyte Esterase NEGATIVE, Urine RBC (Auto) NEGATIVE, Urine RBC NONE, Urine WBC NONE, Urine Squamous Epithelial Cells 2-5, Urine Crystals NONE, Urine Bacteria TRACE, Urine Casts NONE, Urine Mucus NEGATIVE, Urine Culture Indicated NO, Urine Opiates Screen NEGATIVE, Urine Oxycodone Screen NEGATIVE, Urine Methadone Screen NEGATIVE, Urine Propoxyphene Screen NEGATIVE, Urine Barbiturates Screen NEGATIVE, Ur Tricyclic Antidepressants Screen NEGATIVE, Urine Phencyclidine Screen NEGATIVE, Urine Amphetamines Screen NEGATIVE, Urine Methamphetamines Screen NEGATIVE, Urine Benzodiazepines Screen NEGATIVE, Urine Cocaine Screen NEGATIVE, Urine Cannabinoids Screen NEGATIVE 07/26/18 12:49: White Blood Count 7.7, Red Blood Count 4.73, Hemoglobin 13.2, Hematocrit 40, Mean Corpuscular Volume 84, Mean Corpuscular Hemoglobin 28, Mean Corpuscular Hemoglobin Concent 33, Red Cell Distribution Width 14.1, Platelet Count 345, Mean Platelet Volume 10.3, Neutrophils (%) (Auto) 62, Lymphocytes (%) (Auto) 25 , Monocytes (%) (Auto) 8, Eosinophils (%) (Auto) 5, Basophils (%) (Auto) 0, Neutrophils # (Auto) 4.8, Lymphocytes # (Auto) 1.9, Monocytes # (Auto) 0.6, Eosinophils # (Auto) 0.4H, Basophils # (Auto) 0.0, Erythrocyte Sedimentation Rate 37H, Sodium Level 138, Potassium Level 4.2, Chloride Level 102, Carbon Dioxide Level 24, Anion Gap 12, Blood Urea Nitrogen 9, Creatinine 0.76, Estimat Glomerular Filtration Rate > 60, BUN/Creatinine Ratio 12, Glucose Level 197H, Lactic Acid Level 0.89, Calcium Level 9.9, Corrected Calcium 9.8, Total Bilirubin 0.3, Gamma Glutamyl Transpeptidase 69H, Aspartate Amino Transf (AST/ SGOT) 14, Alanine Aminotransferase (ALT/SGPT) 22, Alkaline Phosphatase 84, Total Protein 7.9, Albumin 4.1, Amylase Level 79, Lipase 147H 07/26/18 20:30: Glucometer 171H 07/27/18 05:42: Glucometer 148H 07/27/18 05:49: White Blood Count 7.9, Red Blood Count 4.29L, Hemoglobin 11.7, Hematocrit 37, Mean Corpuscular Volume 87, Mean Corpuscular Hemoglobin 27, Mean Corpuscular Hemoglobin Concent 32, Red Cell Distribution Width 14.2, Platelet Count 332, Mean Platelet Volume 10.1, Neutrophils (%) (Auto) 62, Lymphocytes (%) (Auto) 22 , Monocytes (%) (Auto) 11, Eosinophils (%) (Auto) 4, Basophils (%) (Auto) 0, Neutrophils # (Auto) 4.9, Lymphocytes # (Auto) 1.7, Monocytes # (Auto) 0.9, Eosinophils # (Auto) 0.4H, Basophils # (Auto) 0.0, Sodium Level 137, Potassium Level 4.0, Chloride Level 103, Carbon Dioxide Level 24, Anion Gap 10, Blood Urea Nitrogen 9, Creatinine 0.70, Estimat Glomerular Filtration Rate > 60, BUN/ Creatinine Ratio 13, Glucose Level 169H, Calcium Level 9.1, Corrected Calcium 9.4, Total Bilirubin 0.5, Aspartate Amino Transf (AST/SGOT) 18, Alanine Aminotransferase (ALT/SGPT) 23, Alkaline Phosphatase 73, Total Protein 6.9, Albumin 3.6, Amylase Level 59, Lipase 123H Assessment/Plan Assessment/Plan Assess & Plan/Chief Complaint lady with epigastric pain with slight elevation of lipase. No radiologic evidence of pancreatic inflammation or peripancreatic fluid collections ; reasonable to treat conservatively. If pain persists, upper endoscopy during the current admission would be in order. In the absence of gallstones, it may be prudent to obtain an endoscopic ultrasound as an outpatient, once her acute symptoms improve. Epigastric apin with elevated lipase, now decreasing. No CT evidence of stefany- pancreatic inflammation. Reasonable to perform an EGD; Scheduled for today Final Diagnosis Epigastric pain. Elevated lipase. For EGD Clinical Quality Measures DVT/VTE Risk/Contraindication: Risk Factor Score Per Nursin RFS Level Per Nursing on Admit: 2=Moderate NAHID ARENAS MD Jul 27, 2018 10:01
--- NOTE | 2018-07-27 10:02 | Conscious Sedation/ASA ---
Conscious Sedation Pre-Proced Time 10:02 ASA Score 2 For ASA 3 and 4: Consider anesthesia and medical clearance. Also, for patients with a history of failed moderate sedation consider anesthesia. Airway Lungs Heart ASA score ASA 1: a normal healthy patient ASA 2: a patient with a mild systemic disease (mid diabetes, controlled hypertension, obesity ASA 3: a patient with a severe systemic disease that limits activity (angina , COPD, prior Myocardial infarction) ASA 4: a patient with an incapacitating disease that is a constant threat to life (CHF, renal failure) ASA 5: a moribund patient not expected to survive 24 hrs. (ruptured aneurysm) ASA 6: a declared brain patient whose organs are being harvested. For emergent operations, add the letter E after the classification Mallampati Classification Grade 2 Sedation Plan Discussed options with patient/fam The patient is an appropriate candidate to undergo the planned procedure, sedation, and anesthesia. The patient immediately re-assessed prior to indication. NAHID ARENAS MD Jul 27, 2018 10:02
[2018-07-27 12:00] VITALS: BP 182/99
[2018-07-27] MEDS ORDERED: NS IV 500 ML 500 ML ONE (12:19)
[2018-07-27] MEDS ORDERED: MIDAZOLAM 2 MG/2 ML (VERSED) VIAL ONE ×3 (12:19→12:20)
[2018-07-27] MEDS ORDERED: HURRICAINE EXT TUBE (BENZOCAINE) ONE (12:20)
[2018-07-27] MEDS ORDERED: fentaNYL INJECTION 100 MCG/2 ML AMP ONE ×2 (12:20→17:14)
[2018-07-27] MEDS: NS IV 500 ML 500 ML IV SCH (12:20)
[2018-07-27] MEDS: fentaNYL INJECTION 100 MCG/2 ML AMP IVP PRN ×5 (12:25→21:22)
[2018-07-27] MEDS: MIDAZOLAM 10 MG/2 ML (VERSED) VIAL IVP PRN ×2 (12:26→12:32)
--- NOTE | 2018-07-27 12:49 | Endo Procedure Record ---
Endo Procedure Report Date of Procedure Last Colonoscopy: No Jul 27, 2018 Surgeon (s) NAHID ARENAS MD Post Procedure/Op Diagnosis 1. Severe, diffuse gastritis with petechia along the body 2.2 mm polyp along the proximal greater curvature 3. Retained bile, possibly due to bile reflux Procedure Performed EGD with antral biopsy for H. pylori Gastric snare polypectomy Description of Procedure Anesthesia Type: Conscious Sedation Specimen(s) collected/removed antral mucosa for H. pylori. Gastric polyp Description of the Procedure Indication for the procedure: This lady has been admitted with epigastric pain and nausea and vomiting. During the evaluation, lipase was elevated slightly with no radiologic evidence of pancreatic or peripancreatic inflammation. Further evaluation, performing an upper endoscopy was felt to be reasonable. Informed consent was obtained after reviewing the procedure in detail. Description of procedure: She was placed in left lateral decubitus position and her vital signs were monitored. Conscious sedation was achieved using Versed and fentanyl. The flexible gastroscope was then introduced down the esophagus, past the stomach, into the proximal duodenum. Findings: Esophagus: Normal Stomach: 1.Diffuse gastritis with petechia along the body 2. 2 mm polyp along the proximal greater curvature 3. Retained bile, possibly due to bile reflux An antral biopsy was performed for H. pylori status ; in addition, the polyp was snared and retrieved using a trap device. She tolerated the procedure well and was taken back to the nursing area in a stable condition. Impression: Epigastric pain. Diffuse, severe gastritis with petechiae. Gastric polyp excised. Helicobacter status pending. Copy Copies To 1: JUSTINO MAXWELL XAVIER M MD Jul 27, 2018 12:49
[2018-07-27] MEDS ORDERED: HURRICAINE EXT TUBE (BENZOCAINE) XX ONE (13:00)
[2018-07-27] MEDS: SUCRALFATE 1 GM (CARAFATE) TAB PO SCH ×2 (13:34→16:34)
[2018-07-27] MEDS ORDERED: MIDAZOLAM 2 MG/2 ML (VERSED) VIAL IVP ONE (13:45)
[2018-07-27] MEDS ORDERED: fentaNYL INJECTION 100 MCG/2 ML AMP IVP ONE (14:15)
[2018-07-27 16:30] VITALS: BP 179/87
[2018-07-27] MEDS: METOCLOPRAMIDE INJ 10 MG/2 ML (REGLAN) IVP SCH (17:24)
[2018-07-27 19:25] VITALS: BP 134/65
[2018-07-27] MEDS: PANTOPRAZOLE 40 MG (PROTONIX) VIAL IV SCH (21:21)
[2018-07-28] VITALS (7 sets, daily range): BP systolic 123–173; BP diastolic 61–97
[2018-07-28] MEDS: METOCLOPRAMIDE INJ 10 MG/2 ML (REGLAN) IVP SCH ×5 (00:05→23:29)
[2018-07-28] MEDS: fentaNYL INJECTION 100 MCG/2 ML AMP IVP PRN ×5 (02:24→20:38)
[2018-07-28] MEDS: NS IV 500 ML 500 ML IV SCH (04:31)
[2018-07-28 05:43] LABS: BASOPHILS % (AUTO) 0 % (0-10); EOSINOPHILS # (AUTO) 0.3 10^3/uL (0.0-0.3); EOSINOPHILS % (AUTO) 3 % (0-10); HEMATOCRIT 36 % (35-52); HEMOGLOBIN 12.1 G/DL (11.5-16.0); LYMPHOCYTES # (AUTO) 1.8 X 10^3 (1.0-4.0); LYMPHOCYTES % (AUTO) 20 % (12-44); MEAN CORPUSCULAR HEMOGLOBIN 28 PG (25-34); MEAN CORPUSCULAR HGB CONC 34 G/DL (32-36); MEAN CORPUSCULAR VOLUME 84 FL (80-99); MEAN PLATELET VOLUME 10.1 FL (7.4-10.4); MONOCYTES # (AUTO) 0.9 X 10^3 (0.0-1.0); MONOCYTES % (AUTO) 10 % (0-12); NEUTROPHILS # (AUTO) 5.7 X 10^3 (1.8-7.8); NEUTROPHILS % (AUTO) 66 % (42-75); PLATELET COUNT 339 10^3/uL (130-400); RED BLOOD COUNT 4.28 10^6/uL (4.35-5.85); RED CELL DISTRIBUTION WIDTH 13.6 % (10.0-14.5); WHITE BLOOD COUNT 8.6 10^3/uL (4.3-11.0)
[2018-07-28 06:04] LABS: ALANINE AMINOTRANSFERASE 25 U/L (0-55); ALBUMIN 3.7 GM/DL (3.2-4.5); ALKALINE PHOSPHATASE 71 U/L (40-136); BILIRUBIN,TOTAL 0.4 MG/DL (0.1-1.0); BUN/CREATININE RATIO 14; CALCIUM 9.3 MG/DL (8.5-10.1); CARBON DIOXIDE 24 MMOL/L (21-32); CHLORIDE 101 MMOL/L (98-107); CREATININE SERUM 0.71 MG/DL (0.60-1.30); GFR ESTIMATED > 60; GLUCOSE 250 MG/DL (70-105); LIPASE 99 U/L (8-78); POTASSIUM 4.4 MMOL/L (3.6-5.0); SODIUM 135 MMOL/L (135-145); TOTAL PROTEIN 7.2 GM/DL (6.4-8.2)
[2018-07-28] MEDS: glyBURIDE 2.5 MG (MICRONASE) TAB PO SCH ×2 (06:44→16:26)
[2018-07-28] MEDS: inSUlin ASPART (NovoLOG) 1 UNIT/0.01 ML (CHARGE PER UNIT) SC SCH ×4 (06:47→21:34)
[2018-07-28] MEDS: PANTOPRAZOLE 40 MG (PROTONIX) VIAL IV SCH ×2 (07:59→20:38)
[2018-07-28] MEDS: ENOXAPARIN 60 MG/0.6 ML (LOVENOX) SYR SC SCH ×2 (07:59→20:38)
[2018-07-28] MEDS: SUCRALFATE 1 GM (CARAFATE) TAB PO SCH ×3 (07:59→20:38)
[2018-07-28] MEDS: AA 4.25% W/LYTES IN D5W IV SOL 1,000 ML IV SCH (08:00)
[2018-07-28] MEDS: ATENOLOL 50 MG (TENORMIN) TAB PO SCH (08:00)
[2018-07-28] MEDS: amLODIPine 5 MG (NORVASC) TAB PO SCH (08:00)
[2018-07-28] MEDS ORDERED: POLYETHYLENE GLYCOL 17 GM (MIRALAX) PACK PO NR (10:45)
[2018-07-28] MEDS ORDERED: SENNOSIDES 8.6 MG (SENOKOT) TAB PO NR (10:45)
--- NOTE | 2018-07-28 11:36 | Progress Note-Hospitalist ---
Subjective HPI/CC On Admission Date Seen by Provider: Jul 28, 2018 Time Seen by Provider: 10:00 CC: Abdominal pain with nausea and vomiting with acute pancreatitis failed outpt treatment HPI: This is a 48-year-old -German female clinic patient of mine for the last 14 years with a past medical history of obesity, obstructive sleep apnea, diabetes mellitus, hypertension, hyperlipidemia, and chronic back pain on chronic narcotic dependence who presented to my clinic 2 days after an ER visit for acute pancreatitis. She is a lifetime nondrinker of alcohol and has not had any significant medication changes recently except for the addition of Augmentin a week and a half before for sinus infection prescribed by me. Apparently she started having abdominal pain on Thursday thought it was the Augmentin stop the Augmentin still had nausea and vomiting and eventually presented to the ER and Thursday found to have elevated lipase with negative CT scan without source of considering she had her gallbladder removed 8 years ago she was given pain medication IV fluids and discharged but she failed that and was in need of hospitalization for at least 3-7 days for bowel rest IV fluid support and pain control. Dr. Lerner has been consulted for abdominal pain and abdominal x-ray was reviewed and patient will be treated conservatively with pain control and IV fluids in the meantime. She did have an episode of emesis this morning after clear liquids were given so she has been placed on nothing by mouth status once again but her blood pressure is elevated so we will give Norvasc with a sip of water. Lipase has decreased slightly and overall status has been unchanged and Dr. Lerner will evaluate her for possible scope evaluation and/or repeat imaging. Subjective/Events-last exam Patient doing much better Severe gastritis noted on EGD Diclofenac will be discontinued No vomiting Plan diet as tolerated Will Hep-Lock IV fluid and ambulate Discharge sodium Review of Systems Gastrointestinal: Nausea, Abdominal Pain Focused Exam Lactate Level 07/26/18 12:49: Lactic Acid Level 0.89 Objective Exam Vital Signs Vital Signs Date Time Temp Pulse Resp B/P (MAP) Pulse Ox O2 Delivery O2 Flow Rate FiO2 07/28/18 08:00 97.9 70 20 123/66 (85) 94 Room Air 07/27/18 21:25 3.00 Capillary Refill : General Appearance: No Apparent Distress, WD/WN Respiratory: Chest Non Tender, Lungs Clear, Normal Breath Sounds, No Accessory Muscle Use, No Respiratory Distress Cardiovascular: Regular Rate, Rhythm, No Edema, No Gallop, No JVD, No Murmur, Normal Peripheral Pulses Gastrointestinal: Normal Bowel Sounds, No Organomegaly, No Pulsatile Mass, Non Tender, Tenderness Neurologic/Psychiatric: Alert, Oriented x3, No Motor/Sensory Deficits, Normal Mood/Affect Results/Procedures Lab Laboratory Tests 07/28/18 05:35 Patient resulted labs reviewed. Assessment/Plan Assessment and Plan Assess & Plan/Chief Complaint Assessment: Severe gastritis induced by diclofenac use Acute pancreatitis due to severe gastritis Diabetes mellitus Hypertension Hyperlipidemia Obstructive sleep apnea Chronic back pain Plan: Discontinue all anti-inflammatories Pain control Carafate PPI Ambulate Hep-locked IV fluid Diagnosis/Problems Diagnosis/Problems (1) Gastritis Status: Acute Qualifiers: Gastritis type: other gastritis Chronicity: acute Gastritis bleeding: without bleeding Qualified Codes: K29.00 - Acute gastritis without bleeding (2) Pancreatitis Status: Acute Qualifiers: Chronicity: acute Pancreatitis type: unspecified pancreatitis type Acute pancreatitis complication: uninfected necrosis Qualified Codes: K85.91 - Acute pancreatitis with uninfected necrosis, unspecified (3) Abdominal pain Status: Acute Qualifiers: Abdominal location: epigastric Qualified Codes: R10.13 - Epigastric pain (4) Vomiting Status: Acute Qualifiers: Vomiting type: unspecified Vomiting Intractability: intractable Nausea presence: with nausea Qualified Codes: R11.2 - Nausea with vomiting, unspecified (5) Diabetes mellitus Status: Chronic Qualifiers: Diabetes mellitus type: type 2 Diabetes mellitus terminal makeup operator insulin use: with snf use Diabetes mellitus complication status: with kidney complications Diabetes mellitus complication detail: with chronic kidney disease Chronic kidney disease stage: unspecified stage Qualified Codes: E11.22 - Type 2 diabetes mellitus with diabetic chronic kidney disease; Z79.4 - residential (current) use of insulin (6) JUAN RAMON on CPAP Status: Chronic (7) Obesity Status: Chronic Qualifiers: Obesity type: due to excess calories Obesity classification: adult class 3 (BMI >= 40) Serious obesity comorbidity presence: with serious comorbidity Body mass index: BMI 50.0-59.9 Qualified Codes: E66.01 - Morbid (severe) obesity due to excess calories; Z68.43 - Body mass index (BMI) 50-59.9, adult (8) Hypertension Status: Chronic Qualifiers: Hypertension type: essential hypertension Qualified Codes: I10 - Essential (primary) hypertension (9) Hyperlipidemia Status: Chronic Qualifiers: Hyperlipidemia type: mixed hyperlipidemia Qualified Codes: E78.2 - Mixed hyperlipidemia (10) Back pain, chronic Status: Chronic Qualifiers: Back pain location: low back pain Back pain laterality: unspecified Sciatica presence: unspecified whether sciatica present Qualified Codes: M54.5 - Low back pain; G89.29 - Other chronic pain (11) Narcotic dependency, continuous Status: Chronic (12) Fever Status: Acute Qualifiers: Fever type: unspecified Qualified Codes: R50.9 - Fever, unspecified Clinical Quality Measures DVT/VTE Risk/Contraindication: Risk Factor Score Per Nursin RFS Level Per Nursing on Admit: 2=Moderate JUSTINO MAXWELL DO Jul 28, 2018 11:36
--- NOTE | 2018-07-28 17:20 | Progress Note (SOAP) ---
Subjective Date Seen by a Provider: Jul 28, 2018 Time Seen by a Provider: 17:17 Subjective/Events-last exam epigastric pain much improved. Appetite still poor. Lipase trending down, almost to normal levels. Review of Systems General: No Chills, No Night Sweats, No Fatigue, No Malaise HEENT: No Head Aches, No Eye Pain, No Ear Pain, No Dysphasia, No Sinus Congestion, No Post Nasal Drip, No Sore Throat Pulmonary: No Dyspnea, No Cough, No Pleuritic Chest Pain Cardiovascular: No: Chest Pain, Palpitations, Orthopnea, Paroxysmal Noc. Dyspnea, Edema, Lt Headedness Gastrointestinal: Constipation Genitourinary: No Dysuria, No Frequency, No Incontinence, No Hematuria, No Retention Musculoskeletal: No: other, neck pain, shoulder pain, arm pain, back pain, hand pain, leg pain, foot pain Neurological: No: Weakness, Numbness, Incoordination, Change in speech, Confusion, Seizures, Other Focused Exam Lactate Level 07/26/18 12:49: Lactic Acid Level 0.89 Objective Exam Vital Signs Date Time Temp Pulse Resp B/P (MAP) Pulse Ox O2 Delivery O2 Flow Rate FiO2 07/28/18 16:04 98.2 75 20 134/61 (85) 97 Room Air 07/28/18 12:00 97.7 71 20 152/91 (111) 97 Room Air 07/28/18 08:00 97.9 70 20 123/66 (85) 94 Room Air 07/28/18 04:00 97.5 75 20 138/65 (89) 99 Room Air 07/28/18 00:00 97.7 77 16 173/81 (111) 98 Room Air 07/27/18 21:25 3.00 07/27/18 19:25 98.9 88 18 134/65 (88) 94 Room Air 07/27/18 17:55 98.6 I & O 07/28/18 07:00 Intake Total 1970 ml Output Total 1200 ml Balance 770 ml Capillary Refill : General Appearance: No Apparent Distress Neck: Normal Inspection Respiratory: Lungs Clear Cardiovascular: Regular Rate, Rhythm Gastrointestinal: non tender, soft Extremity: No Calf Tenderness Neurologic/Psychiatric: Oriented x3 Skin: Warm/Dry Results Lab Laboratory Tests 07/27/18 20:46: Glucometer 232H 07/28/18 05:28: Glucometer 238H 07/28/18 05:35: White Blood Count 8.6, Red Blood Count 4.28L, Hemoglobin 12.1, Hematocrit 36, Mean Corpuscular Volume 84, Mean Corpuscular Hemoglobin 28, Mean Corpuscular Hemoglobin Concent 34, Red Cell Distribution Width 13.6, Platelet Count 339, Mean Platelet Volume 10.1, Neutrophils (%) (Auto) 66, Lymphocytes (%) (Auto) 20 , Monocytes (%) (Auto) 10, Eosinophils (%) (Auto) 3, Basophils (%) (Auto) 0, Neutrophils # (Auto) 5.7, Lymphocytes # (Auto) 1.8, Monocytes # (Auto) 0.9, Eosinophils # (Auto) 0.3, Basophils # (Auto) 0.0, Sodium Level 135, Potassium Level 4.4, Chloride Level 101, Carbon Dioxide Level 24, Anion Gap 10, Blood Urea Nitrogen 10, Creatinine 0.71, Estimat Glomerular Filtration Rate > 60, BUN/ Creatinine Ratio 14, Glucose Level 250H, Calcium Level 9.3, Corrected Calcium 9.5, Total Bilirubin 0.4, Aspartate Amino Transf (AST/SGOT) 13, Alanine Aminotransferase (ALT/SGPT) 25, Alkaline Phosphatase 71, Total Protein 7.2, Albumin 3.7, Lipase 99H 07/28/18 11:34: Glucometer 249H 07/28/18 16:08: Glucometer 195H Microbiology 07/26/18 Blood Culture - Preliminary, Resulted No growth Assessment/Plan Assessment/Plan Assess & Plan/Chief Complaint lady with epigastric pain with slight elevation of lipase. No radiologic evidence of pancreatic inflammation or peripancreatic fluid collections ; reasonable to treat conservatively. If pain persists, upper endoscopy during the current admission would be in order. In the absence of gallstones, it may be prudent to obtain an endoscopic ultrasound as an outpatient, once her acute symptoms improve. Epigastric apin with elevated lipase, now decreasing. No CT evidence of stefany- pancreatic inflammation. Reasonable to perform an EGD; Scheduled for today this lady with severe gastritis. Symptoms much improved. We will use magnesium citrate to address constipation. Possibly switch to oral medications in 24-48 hours. Final Diagnosis gastritis Clinical Quality Measures DVT/VTE Risk/Contraindication: Risk Factor Score Per Nursin RFS Level Per Nursing on Admit: 2=Moderate NAHID ARENAS MD Jul 28, 2018 17:20
[2018-07-28] MEDS ORDERED: MAGNESIUM CITRATE 300 ML BTL PO NR (18:00)
[2018-07-28] MEDS: ONDANSETRON 4 MG/2 ML (SDV) Z0FRAN IVP PRN (18:30)
[2018-07-29 04:27] VITALS: BP 145/72
[2018-07-29] MEDS: inSUlin ASPART (NovoLOG) 1 UNIT/0.01 ML (CHARGE PER UNIT) SC SCH ×2 (06:00→12:14)
[2018-07-29] MEDS: METOCLOPRAMIDE INJ 10 MG/2 ML (REGLAN) IVP SCH (06:27)
[2018-07-29] MEDS: glyBURIDE 2.5 MG (MICRONASE) TAB PO SCH (06:27)
[2018-07-29 08:00] VITALS: BP 109/74
[2018-07-29] MEDS: SUCRALFATE 1 GM (CARAFATE) TAB PO SCH (09:25)
[2018-07-29] MEDS: PANTOPRAZOLE 40 MG (PROTONIX) VIAL IV SCH (09:25)
[2018-07-29] MEDS: ATENOLOL 50 MG (TENORMIN) TAB PO SCH (09:25)
[2018-07-29] MEDS: ENOXAPARIN 60 MG/0.6 ML (LOVENOX) SYR SC SCH (09:25)
[2018-07-29] MEDS: amLODIPine 5 MG (NORVASC) TAB PO SCH (09:27)
[2018-07-29] MEDS ORDERED: AMLO5TAB7 PO (10:41)
[2018-07-29] MEDS ORDERED: SUCR1TAB36 PO (10:41)
[2018-07-29] MEDS ORDERED: PANT40TA3 PO (10:41)
--- NOTE | 2018-07-29 10:43 | Discharge Summary-Hospitalist ---
Diagnosis/Chief Complaint Date of Admission Jul 26, 2018 at 11:39 Date of Discharge Discharge Date: Jul 29, 2018 Admission Diagnosis Assessment: Refractory abdominal pain due to acute pancreatitis failed outpatient treatment Severe nausea and vomiting unable to tolerate oral fluids Diabetes mellitus insulin-dependent Hypertension Hyperlipidemia Obstructive sleep apnea on treatment Obesity Chronic back pain on narcotics Plan: Change IV fluids from normal saline to Clinimix for peripheral nutrition Pain control Await Dr. Lerner recommendations Scopolamine patch for nausea MPO except for amlodipine 5 mg daily Discharge Diagnosis (1) Gastritis Status: Acute (2) Pancreatitis Status: Resolved (3) Abdominal pain Status: Resolved (4) Vomiting Status: Resolved (5) Diabetes mellitus Status: Chronic (6) JUAN RAMON on CPAP Status: Chronic (7) Obesity Status: Chronic (8) Hypertension Status: Chronic (9) Hyperlipidemia Status: Chronic (10) Back pain, chronic Status: Chronic (11) Narcotic dependency, continuous Status: Chronic (12) Fever Status: Resolved Discharge Summary Discharge Physical Exam Allergies: Coded Allergies: No Known Drug Allergies (Unverified , 04/03/16) Vitals & I&Os Vital Signs Date Time Temp Pulse Resp B/P (MAP) Pulse Ox O2 Delivery O2 Flow Rate FiO2 07/29/18 11:45 79 16 109/74 96 Room Air 07/29/18 08:00 97.5 07/27/18 21:25 3.00 General Appearance: No Apparent Distress, WD/WN Respiratory: Chest Non Tender, Lungs Clear, Normal Breath Sounds, No Accessory Muscle Use, No Respiratory Distress Cardiovascular: Regular Rate, Rhythm, No Edema, No Gallop, No JVD, No Murmur, Normal Peripheral Pulses Gastrointestinal: Normal Bowel Sounds, No Organomegaly, No Pulsatile Mass, Non Tender, Soft Neurologic/Psychiatric: Alert, Oriented x3, No Motor/Sensory Deficits, Normal Mood/Affect Hospital Course Hospital course: Patient was admitted after failure of outpatient treatment for pancreatitis. Patient was placed nothing by mouth given IV fluids and general surgery was consulted. Mild pancreatitis was still mysterious since all workup was negative so she underwent an EGD showing very severe gastritis consistent with diclofenac anti-inflammatory source so she was placed on proton pump inhibitor along with Carafate for acid neutralizing and she overall improved was able to tolerate a bland diet 2 days after and was agreeable for discharge. Labs (last 24 hrs) Microbiology 07/26/18 Blood Culture - Preliminary, Resulted No growth Patient resulted labs reviewed. Pending Labs Discussion & Recommendations Discharge Planning: <30 minutes discharge planning Discharge Home Medications: Active Scripts Active Carafate (Sucralfate) 1 Gm Tablet 1 Gm PO ACHS Pantoprazole Sodium 40 Mg Tablet.dr 40 Mg PO BID Amlodipine Besylate 5 Mg Tablet 5 Mg PO DAILY Zofran Odt (Ondansetron) 4 Mg Tab.rapdis 4 Mg SL Q4H PRN Reported Glyburide 2.5 Mg Tablet 2.5 Mg PO BID Toujeo Solostar (Insulin Glargine,Hum.rec.anlog) 300 Unit/1 Ml Insuln.pen 64 Units SC HS Hydrochlorothiazide 12.5 Mg Capsule 12.5 Mg PO DAILY Atenolol 50 Mg Tablet 50 Mg PO DAILY Carisoprodol 350 Mg Tablet 350 Mg PO TID Lovastatin 10 Mg Tablet 10 Mg PO DAILY Lisinopril 10 Mg Tablet 10 Mg PO DAILY Oxycodone HCl 10 Mg Tablet 10 Mg PO QID PRN Instructions to patient/family Please see electronic discharge instructions given to patient. Clinical Quality Measures DVT/VTE Risk/Contraindication: Risk Factor Score Per Nursin RFS Level Per Nursing on Admit: 2=Moderate Problem Qualifiers (1) Gastritis: Gastritis type: other gastritis Chronicity: acute Gastritis bleeding: without bleeding Qualified Codes: K29.00 - Acute gastritis without bleeding (2) Pancreatitis: Chronicity: acute Pancreatitis type: unspecified pancreatitis type Acute pancreatitis complication: uninfected necrosis Qualified Codes: K85.91 - Acute pancreatitis with uninfected necrosis, unspecified (3) Abdominal pain: Abdominal location: epigastric Qualified Codes: R10.13 - Epigastric pain (4) Vomiting: Vomiting type: unspecified Vomiting Intractability: intractable Nausea presence: with nausea Qualified Codes: R11.2 - Nausea with vomiting, unspecified (5) Diabetes mellitus: Diabetes mellitus type: type 2 Diabetes mellitus shelter insulin use: with shelter use Diabetes mellitus complication status: with kidney complications Diabetes mellitus complication detail: with chronic kidney disease Chronic kidney disease stage: unspecified stage Qualified Codes: E11.22 - Type 2 diabetes mellitus with diabetic chronic kidney disease; Z79.4 - prison (current) use of insulin (6) Obesity: Obesity type: due to excess calories Obesity classification: adult class 3 ( BMI >= 40) Serious obesity comorbidity presence: with serious comorbidity Body mass index: BMI 50.0-59.9 Qualified Codes: E66.01 - Morbid (severe) obesity due to excess calories; Z68.43 - Body mass index (BMI) 50-59.9, adult (7) Hypertension: Hypertension type: essential hypertension Qualified Codes: I10 - Essential ( primary) hypertension (8) Hyperlipidemia: Hyperlipidemia type: mixed hyperlipidemia Qualified Codes: E78.2 - Mixed hyperlipidemia (9) Back pain, chronic: Back pain location: low back pain Back pain laterality: unspecified Sciatica presence: unspecified whether sciatica present Qualified Codes: M54.5 - Low back pain; G89.29 - Other chronic pain (10) Fever: Fever type: unspecified Qualified Codes: R50.9 - Fever, unspecified JUSTINO MAXWELL DO Jul 29, 2018 10:43
[2018-07-29 11:45] VITALS: BP 109/74
[2018-07-29] MEDS ORDERED: METOCLOPRAMIDE 10 MG (REGLAN) TAB PO SCH (12:00)
--- NOTE | 2018-07-29 14:29 | Progress Note-Standard ---
Standard Progress Note Progress Notes/Assess & Plan Date Seen by a Provider: Jul 29, 2018 Time Seen by a Provider: 14:28 Progress/Assessment & Plan epigastric pain resolved. Tolerating diet. Good response to magnesium citrate. Being discharged today. Final Diagnosis severe gastritis. NAHID ARENAS MD Jul 29, 2018 14:29
[2018-07-29] MEDS ORDERED: PANTOPRAZOLE 40 MG (PROTONIX) TAB PO SCH (21:00)
[2018-07-30] MEDS ORDERED: SCOPOLAMINE PATCH REMOVAL TP SCH (09:00)
== END 2018-07-29 14:00 | disposition home or self-care (01) | DRG 391 ==
LOC: 4TH 11:39
PROVIDERS: ADMIT Internal Medicine; ATTEND Internal Medicine
PROC: 0DB78ZX Excision of Stomach, Pylorus, Via Natural or Artificial Opening Endoscopic, Diagnostic (ICD-10-PCS; 2018-07-27)
PROC: 0DB68ZX Excision of Stomach, Via Natural or Artificial Opening Endoscopic, Diagnostic (ICD-10-PCS; principal; 2018-07-27 12:20)
DX: K29.00 Acute gastritis without bleeding (principal); K85.91 Acute pancreatitis with uninfected necrosis, unspecified; K31.7 Polyp of stomach and duodenum; Z68.43 Body mass index [BMI] 50.0-59.9, adult; F11.20 Opioid dependence, uncomplicated; E11.22 Type 2 diabetes mellitus with diabetic chronic kidney disease; N18.9 Chronic kidney disease, unspecified; I10 Essential (primary) hypertension; Z23 Encounter for immunization; E66.01 Morbid (severe) obesity due to excess calories; E78.2 Mixed hyperlipidemia; G89.29 Other chronic pain; M54.5 Low back pain; G47.33 Obstructive sleep apnea (adult) (pediatric); J30.2 Other seasonal allergic rhinitis; R32 Unspecified urinary incontinence; K21.9 Gastro-esophageal reflux disease without esophagitis; M19.91 Primary osteoarthritis, unspecified site; T39.395A Adverse effect of other nonsteroidal anti-inflammatory drugs [NSAID], initial encounter; Z79.4 Long term (current) use of insulin; Z90.49 Acquired absence of other specified parts of digestive tract
CPT/HCPCS: 36415; 71046; 74019; 80053; 80306; 81000; 82150; 82962; 82977; 83605; 83690; 85025; 85652; 87040; 88305; 90686

== ENCOUNTER → 2018-10-25 | Outpatient (CLI) | payer BC ==
[~2018-10-25] MED LIST changes: +AMLO5TAB7 PO; +GLYB2.5T4 PO; +PANT40TA3 PO
--- NOTE | 2018-10-25 08:57 | Diagnostic Imaging Report ---
Indication: Routine screening. Comparison is made with prior mammogram from 10/13/2017 and 08/27/2015. 2-D and 3-D bilateral screening mammography was performed with CAD. Scattered fibroglandular hypodensities are identified bilaterally. The parenchymal pattern is stable. No mass or malignant-appearing microcalcifications are seen. The axillae are unremarkable. Impression: BI-RADS category 1 No mammographic features suspicious for malignancy are identified. ACR BI-RADS Category 1: Negative. Result letter will be mailed to the patient. Note: At least 10% of breast cancer is not imaged by mammography. Dictated by: Dictated on workstation # [id number]
== END ==
LOC: RAD 07:13
PROVIDERS: ATTEND Internal Medicine
DX: Z12.31 Encounter for screening mammogram for malignant neoplasm of breast (principal)
CPT/HCPCS: 77067

== ENCOUNTER → 2019-05-26 | Outpatient (CLI) | payer BC ==
[~2019-05-26] MED LIST changes: -AMLO5TAB7 PO; +AMLO5TAB9 PO; +CHOL200014 PO; -CHOL200085 PO
--- NOTE | 2019-05-26 20:32 | Diagnostic Imaging Report ---
INDICATION: Clear nipple discharge. COMPARISON: Correlation is made with prior mammograms from 10/25/2018 and 10/13/2017. EXAMINATION: Unilateral left 2D and 3D diagnostic mammography was performed with CAD. The current study was also evaluated with a Computer Aided Detection (CAD) system. FINDINGS: Scattered fibroglandular densities are noted. No mass or malignant appearing microcalcifications are seen. Left axilla is unremarkable. IMPRESSION: No mammographic features suspicious for malignancy are identified. Even so, directed sonographic interrogation of the retroareolar left breast is recommended and will be performed today. ACR BI-RADS Category 0: Incomplete. (Needs additional imaging evaluation). Result letter will be mailed to the patient. Note: At least 10% of breast cancer is not imaged by mammography. Dictated by: Dictated on workstation # [id number]
--- NOTE | 2019-05-26 20:38 | Diagnostic Imaging Report ---
INDICATION: Galactorrhea. Patient complains of clear nipple discharge for 8-9 months. COMPARISON: Correlation is made with diagnostic mammogram from earlier the same day. EXAMINATION: Sonographic interrogation of the retroareolar left breast was performed. FINDINGS: There is mild dilatation of the duct in the retroareolar region. No definite intraductal mass is seen. No other abnormality is detected. IMPRESSION: Mild ductal dilatation. No intraductal mass is detected. If symptoms persist, consideration could be given to performance of an MRI. ACR BI-RADS Category 2: Benign findings. Result letter will be mailed to the patient. Note: At least 10% of breast cancer is not imaged by mammography. Dictated by: Dictated on workstation # [id number]
== END ==
LOC: RAD 12:52
PROVIDERS: ATTEND Internal Medicine
DX: N64.3 Galactorrhea not associated with childbirth (principal); N60.41 Mammary duct ectasia of right breast
CPT/HCPCS: 76642

== ENCOUNTER → 2020-07-18 | Outpatient (CLI) | payer BC, OTHER ==
[~2020-07-18] MED LIST changes: +ACHD5005 PO; -HYDR-3812 PO; -MECO5000 PO; +OMEP40CA27 PO; -OMEP40CA36 PO; -PANT40TA3 PO; +PANT40TA52 PO; +[UNRECOGNIZED DRUG - CODE] PO
--- NOTE | 2020-07-18 11:44 | Diagnostic Imaging Report ---
INDICATION: Routine screening. Comparison is made with prior mammogram 10/25/2018 and 10/13/2017. 2-D and 3-D bilateral screening mammography was performed with CAD. Scattered fibroglandular densities are identified bilaterally. The parenchymal pattern is stable. No mass or malignant appearing microcalcifications are identified. Axillae are unremarkable. IMPRESSION: BI-RADS Category 1 No mammographic features suspicious for malignancy are identified. Dictated by: Dictated on workstation # [id number]
== END ==
LOC: RAD 08:00
PROVIDERS: ATTEND Internal Medicine
DX: Z12.31 Encounter for screening mammogram for malignant neoplasm of breast (principal)
CPT/HCPCS: 77063; 77067

== ENCOUNTER 2021-07-28 17:27 | Emergency (ER) | payer OTHER ==
[~2021-07-28] VITALS: Ht 160 cm; Wt 146.1 kg
[~2021-07-28 17:27] MED LIST changes: +AMLO-250 PO; -AMLO5TAB9 PO; +GLBR2.5T PO; -GLYB2.5T4 PO; -LISI10TA2 PO; +LISI10TA25 PO; -OMEP40CA27 PO; +OMEP40CA6 PO
[2021-07-28 17:59] LABS: BASOPHILS % (AUTO) 0 % (0-10); EOSINOPHILS # (AUTO) 0.6 10^3/uL (0.0-0.3); EOSINOPHILS % (AUTO) 7 % (0-10); HEMATOCRIT 40 % (35-52); HEMOGLOBIN 12.4 g/dL (11.5-16.0); LYMPHOCYTES % (AUTO) 35 % (12-44); MEAN CORPUSCULAR HEMOGLOBIN 27 pg (25-34); MEAN CORPUSCULAR HGB CONC 31 g/dL (32-36); MEAN CORPUSCULAR VOLUME 87 fL (80-99); MEAN PLATELET VOLUME 10.1 fL (9.0-12.2); MONOCYTES # (AUTO) 0.9 10^3/uL (0.0-1.0); MONOCYTES % (AUTO) 10 % (0-12); NEUTROPHILS % (AUTO) 47 % (42-75); PLATELET COUNT 378 10^3/uL (130-400); WHITE BLOOD COUNT 8.5 10^3/uL (4.3-11.0)
[2021-07-28 18:07] LABS: ALBUMIN 3.6 GM/DL (3.2-4.5)
[2021-07-28 18:08] LABS: CALCIUM 9.3 MG/DL (8.5-10.1)
[2021-07-28 18:10] LABS: TOTAL PROTEIN 7.1 GM/DL (6.4-8.2)
[2021-07-28 18:11] LABS: BILIRUBIN,TOTAL 0.2 MG/DL (0.1-1.0)
[2021-07-28 18:13] LABS: CREATININE SERUM 0.87 MG/DL (0.60-1.30)
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
--- NOTE | 2021-07-28 18:43 | Diagnostic Imaging Report ---
EXAMINATION: Left wrist 3 or more views. REASON FOR EXAM: Wrist pain. COMPARISON: None available. FINDINGS: No acute fracture or dislocation is seen in the left wrist. No focal osseous lesion. IMPRESSION: No acute fracture or dislocation in the left wrist. Dictated by: Dictated on workstation # [id number]
[2021-07-28 18:44] LABS: BILIRUBIN,URINE NEGATIVE (NEGATIVE); CLARITY,URINE CLEAR; COLOR,URINE YELLOW; GLUCOSE, URINE (UA) NEGATIVE (NEGATIVE); KETONES,URINE NEGATIVE (NEGATIVE); LEUKOCYTE ESTERASE ,URINE NEGATIVE (NEGATIVE); NITRITE,URINE NEGATIVE (NEGATIVE); PH,URINE 6.5 (5-9); PROTEIN,URINE NEGATIVE (NEGATIVE)
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
[2021-07-28] MEDS ORDERED: KETOROLAC 30 MG/ML VIAL ONE (18:49)
[2021-07-28 18:50] LABS: BACTERIA,URINE NEGATIVE /HPF; SQUAMOUS EPITHELIAL CELL,UR 0-2 /HPF
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
[2021-07-28] MEDS ORDERED: KETOROLAC 30 MG/ML VIAL IVP ONE (19:15)
[2021-07-28 19:56] VITALS: BP 152/86
== END 2021-07-28 19:56 | disposition home or self-care (01) ==
LOC: EDUNIT# 17:27 → ER 17:29
DX: S16.1XXA Strain of muscle, fascia and tendon at neck level, initial encounter (principal); S29.019A Strain of muscle and tendon of unspecified wall of thorax, initial encounter; S39.012A Strain of muscle, fascia and tendon of lower back, initial encounter; S63.502A Unspecified sprain of left wrist, initial encounter; E66.01 Morbid (severe) obesity due to excess calories; G47.30 Sleep apnea, unspecified; I10 Essential (primary) hypertension; K21.9 Gastro-esophageal reflux disease without esophagitis; E78.00 Pure hypercholesterolemia, unspecified; G89.29 Other chronic pain; M54.9 Dorsalgia, unspecified; E11.9 Type 2 diabetes mellitus without complications; Z68.43 Body mass index [BMI] 50.0-59.9, adult; Z79.899 Other long term (current) drug therapy; Z79.891 Long term (current) use of opiate analgesic; V89.2XXA Person injured in unspecified motor-vehicle accident, traffic, initial encounter
CPT/HCPCS: 36415; 70450; 72125; 72128; 72131; 73030; 73110; 80053; 81000; 85025; 93041

== ENCOUNTER → 2021-11-26 | Outpatient (CLI) | payer OTHER ==
--- NOTE | 2021-11-26 10:36 | Diagnostic Imaging Report ---
PROCEDURE: US Thyroid. TECHNIQUE: Multiple Real-time grayscale images were obtained of the thyroid in various projections. INDICATION: Thyroid nodule. COMPARISON: CT cervical spine from 07/28/2021. FINDINGS: The right thyroid lobe is large and heterogeneous measuring 6.9 x 3.0 x 3.4 cm in size. Vascularity appears normal. In the superior right thyroid, there is a solid, heterogeneous, isoechoic nodule measuring 2.7 x 2.3 x 2.2 cm in size. In the inferior right thyroid, there is a heterogeneous, isoechoic nodule measuring 3.6 x 2.5 x 3.0 cm in size. The isthmus is normal in thickness measuring 0.5 cm with no nodule seen. The left thyroid lobe measures 4.9 x 2.8 x 1.8 cm in size. Background echotexture is mildly heterogeneous. There is an isoechoic heterogeneous nodule in the superior thyroid measuring 1.5 x 1.1 x 1.2 cm. There is a mixed, mostly cystic nodule in the mid thyroid which measures 0.8 x 0.6 x 0.6 cm. There is a heterogeneous isoechoic solid nodule in the inferior left thyroid which measures 1.9 x 1.1 x 1.4 cm. IMPRESSION: Enlarged heterogeneous multinodular thyroid. Two nodules in the right thyroid qualify for FNA with the largest measuring up to 3.6 cm. Nodules in the left thyroid qualify for followup in 1 year. Dictated by: Dictated on workstation # [id number]
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
== END ==
LOC: RAD 08:34
PROVIDERS: ATTEND Internal Medicine
DX: Z12.31 Encounter for screening mammogram for malignant neoplasm of breast (principal); E04.2 Nontoxic multinodular goiter
CPT/HCPCS: 76536; 77063; 77067

== ENCOUNTER → 2021-12-11 | Outpatient (CLI) | payer OTHER ==
[~2021-12-11] VITALS: Ht 160 cm; Wt 150.0 kg
[~2021-12-11] MED LIST changes: +LIDOCAINE 1% INJ 50 ML (XYLOCAINE) VIAL IJ ONE
--- NOTE | 2021-12-11 12:38 | Diagnostic Imaging Report ---
INDICATION: Right thyroid nodules. Patient presents for ultrasound guided fine needle aspiration biopsy. Patient brought to the procedure and placed on table in the supine position. Ultrasound imaging of the right neck was performed to evaluate appropriate entry site. Right neck was prepped and draped in usual sterile fashion. Small amount 1% lidocaine was utilized for local anesthesia. A total of 4 passes were made into the solid dominant nodule in the upper pole right lobe of thyroid utilizing 25-gauge needles and fine-needle aspiration technique. A single pass was made with a Rotex needle and Rotex biopsy was performed. Needle was removed and hemostasis was obtained. Patient tolerated procedure well. IMPRESSION: Successful ultrasound-guided fine-needle aspiration and Rotex biopsy of dominant solid nodule in the upper pole right lobe of thyroid. Pathology results are currently pending. Dictated by: Dictated on workstation # [id number]
--- NOTE | 2021-12-11 12:39 | Diagnostic Imaging Report ---
INDICATION: Right thyroid nodules. Patient presents for ultrasound-guided fine needle aspiration and biopsy. Patient was brought to the procedure room and placed on the table in the supine position. Ultrasound imaging of the right neck was performed with appropriate entry site. Right neck was prepped and draped in usual sterile fashion. Small amount of 1% lidocaine was utilized for local anesthesia. A total of 4 passes were made into the dominant nodule in the lower pole of the right lobe of the thyroid utilizing 25-gauge needles and fine-needle aspiration technique. A single pass is made with a Rotex needle and Rotex biopsy was performed. [place] were removed and hemostasis was obtained. Patient tolerated the procedure well and left the department in stable condition. IMPRESSION: Successful ultrasound guided fine needle aspiration and Rotex biopsy of the dominant solid nodule in the lower pole right lobe of the thyroid. Pathology results are currently pending. Dictated by: Dictated on workstation # [id number]
== END ==
LOC: RAD 09:30
PROVIDERS: ATTEND Internal Medicine
DX: E04.2 Nontoxic multinodular goiter (principal)
CPT/HCPCS: 10005; 10006

== ENCOUNTER → 2022-05-14 | Outpatient (CLI) | payer OTHER ==
[~2022-05-14] MED LIST changes: -LIDOCAINE 1% INJ 50 ML (XYLOCAINE) VIAL IJ ONE
[2022-05-14 16:39] LABS: HEMATOCRIT 40 % (35-52); HEMOGLOBIN 12.5 g/dL (11.5-16.0); MEAN CORPUSCULAR HEMOGLOBIN 27 pg (25-34); MEAN CORPUSCULAR HGB CONC 32 g/dL (32-36); MEAN CORPUSCULAR VOLUME 85 fL (80-99); MEAN PLATELET VOLUME 10.3 fL (9.0-12.2); PLATELET COUNT 312 10^3/uL (130-400); WHITE BLOOD COUNT 8.6 10^3/uL (4.3-11.0)
[2022-05-14 16:51] LABS: CALCIUM 9.3 MG/DL (8.5-10.1)
[2022-05-14 16:56] LABS: CREATININE SERUM 0.73 MG/DL (0.60-1.30)
== END ==
LOC: RT 16:13
PROVIDERS: ATTEND Surgery
DX: Z01.812 Encounter for preprocedural laboratory examination (principal)
CPT/HCPCS: 36415; 80048; 85027; 93005

== ENCOUNTER → 2023-01-05 | Outpatient (CLI) | payer BC ==
--- NOTE | 2023-01-05 09:45 | Diagnostic Imaging Report ---
INDICATION: Routine screening. Comparison is made with prior mammogram from 11/26/2021 and 07/18/2020. 2-D and 3-D bilateral screening mammography was performed with CAD. CAD is utilized. The current study was also evaluated with a Computer Aided Detection (CAD) system. Scattered fibroglandular densities are identified bilaterally. The parenchymal pattern is stable. No mass or malignant-appearing microcalcifications are identified. Axillae are unremarkable. IMPRESSION: BI-RADS Category 1 No mammographic features suspicious for malignancy are identified. ACR BI-RADS Category 1: Negative. Result letter will be mailed to the patient. Note: At least 10% of breast cancer is not imaged by mammography. Dictated by: Dictated on workstation # [id number]
== END ==
LOC: RAD 07:30
PROVIDERS: ATTEND Internal Medicine
DX: Z12.31 Encounter for screening mammogram for malignant neoplasm of breast (principal)
CPT/HCPCS: 77063; 77067

== ENCOUNTER 2023-08-22 09:13 | Emergency (ER) | payer BC ==
[~2023-08-22] VITALS: Ht 160 cm; Wt 140.0 kg
[2023-08-22] MEDS ORDERED: NS IV 1000 ML 1,000 ML IV STA (09:33)
[2023-08-22 09:38] LABS: BASOPHILS % (AUTO) 0 % (0-10); EOSINOPHILS # (AUTO) 0.3 10^3/uL (0.0-0.3); EOSINOPHILS % (AUTO) 7 % (0-10); HEMATOCRIT 42 % (35-52); HEMOGLOBIN 13.3 g/dL (11.5-16.0); LYMPHOCYTES % (AUTO) 40 % (12-44); MEAN CORPUSCULAR HEMOGLOBIN 26 pg (25-34); MEAN CORPUSCULAR HGB CONC 31 g/dL (32-36); MEAN CORPUSCULAR VOLUME 84 fL (80-99); MEAN PLATELET VOLUME 10.2 fL (9.0-12.2); MONOCYTES # (AUTO) 1.2 10^3/uL (0.0-1.0); MONOCYTES % (AUTO) 25 % (0-12); NEUTROPHILS # (AUTO) 1.3 10^3/uL (1.8-7.8); NEUTROPHILS % (AUTO) 27 % (42-75); PLATELET COUNT 326 10^3/uL (130-400); WHITE BLOOD COUNT 4.9 10^3/uL (4.3-11.0)
[2023-08-22] MEDS ORDERED: ONDANSETRON INJECTION 4 MG/2 ML (SDV) IVP ONE (09:45)
[2023-08-22 09:46] LABS: ALBUMIN 3.4 GM/DL (3.2-4.5); POTASSIUM 4.1 MMOL/L (3.6-5.0)
[2023-08-22 09:47] LABS: CALCIUM 9.3 MG/DL (8.5-10.1)
[2023-08-22 09:48] LABS: TOTAL PROTEIN 7.7 GM/DL (6.4-8.2)
[2023-08-22 09:50] LABS: BILIRUBIN,TOTAL 0.3 MG/DL (0.1-1.0)
--- NOTE | 2023-08-22 09:50 | ED GI ---
General Chief Complaint: Abdominal/GI Problems Stated Complaint: DIARRHEA/FEVER/NAUSEA/ABD PAIN/WEAK Source of Information: Patient Exam Limitations: No Limitations History of Present Illness Date Seen by Provider: Aug 22, 2023 Time Seen by Provider: 09:25 Initial Comments Here with report of nausea, vomiting and diarrhea with some upper abdominal cramping that has been going on since last Thursday, 4 days ago. States initially had both vomiting and diarrhea but vomiting only lasted about a day but the diarrhea has persisted. She states that the diarrhea is watery and yell ow/brown. Denies blood in her urine or stools. Does have some upper respiratory congestion. No current fever. Denies chest pain or breathing problems. Timing/Duration: 3-4 Days Severity/Quality: Mild, Moderate, Cramping Location: RUQ, LUQ, Epigastric Radiation: No Radiation Modifying Factors: Worsens With Eating Associated Symptoms: Nausea/Vomiting, Weakness Allergies and Home Medications Allergies Coded Allergies: No Known Drug Allergies (Unverified , 04/03/16) Patient Home Medication List Home Medication List Reviewed: Yes Amlodipine Besylate (Amlodipine Besylate) 5 Mg Tablet, 5 MG PO DAILY Prescribed by: JUSTINO MAXWELL on 07/29/18 1041 Atenolol (Atenolol) 50 Mg Tablet, 50 MG PO DAILY, (Reported) Entered as Reported by: AMANDO HUGO on 04/04/16 0839 Carisoprodol (Carisoprodol) 350 Mg Tablet, 350 MG PO TID, (Reported) Entered as Reported by: AMANDO HUGO on 04/04/16 0839 Glyburide (Glyburide) 2.5 Mg Tablet, 2.5 MG PO BID, (Reported) Entered as Reported by: AMANDO HUGO on 07/26/18 1336 Hydrochlorothiazide (Hydrochlorothiazide) 12.5 Mg Capsule, 12.5 MG PO DAILY, (Reported) Entered as Reported by: AMANDO HUGO on 04/04/16 0839 Insulin Glargine,Hum.rec.anlog (Ehsan Asherostar) 300 Unit/1 Ml Insuln.pen, 64 UNITS SC HS, (Reported) Entered as Reported by: AMANDO HUGO on 04/04/16 0843 Lisinopril (Lisinopril) 10 Mg Tablet, 10 MG PO DAILY, (Reported) Entered as Reported by: AMANDO HUGO on 04/04/16 0839 Lovastatin (Lovastatin) 10 Mg Tablet, 10 MG PO DAILY, (Reported) Entered as Reported by: AMANDO HUGO on 04/04/16 0839 Ondansetron (Zofran Odt) 4 Mg Tab.rapdis, 4 MG SL Q4H PRN for NAUSEA/VOMITING- 1ST LINE Prescribed by: VINCE VEGA on 07/24/18 1831 Oxycodone HCl (Oxycodone HCl) 10 Mg Tablet, 10 MG PO QID PRN for PAIN-SEVERE, (Reported) Entered as Reported by: AMANDO HUGO on 04/04/16 0839 Pantoprazole Sodium (Pantoprazole Sodium) 40 Mg Tablet.dr, 40 MG PO BID Prescribed by: JUSTINO MAXWELL on 07/29/18 1041 Sucralfate (Carafate) 1 Gm Tablet, 1 GM PO ACHS Prescribed by: JUSTINO MAXWELL on 07/29/18 1041 Review of Systems Review of Systems Constitutional: see HPI; No chills, No fever EENTM: Nose Congestion Respiratory: Denies Shortness of Air Cardiovascular: Denies Chest Pain, Denies Edema Gastrointestinal: Abdominal Pain, Diarrhea, Nausea, Vomiting Genitourinary: No Symptoms Reported Musculoskeletal: No back pain, No muscle pain Past Joaawkv-[id number]-[id number] Hx Patient Social History Tobacco Use?: No Use of E-Cig and/or Vaping dev: No Substance use?: No Immunizations Up To Date First/Initial COVID19 Vaccinat: DECEMBER 2020 Second COVID19 Vaccination Angel: JANUARY 2021 Seasonal Allergies Seasonal Allergies: Yes Past Medical History Surgery/Hospitalization HX: SX: TOTAL HYSTERECTOMY, GALLBLADDER, BILAT CARPAL TUNNEL, RIGHT MENISCUS Surgeries: Yes ( ABOVE) Gallbladder, Hysterectomy, Orthopedic, Tubal Ligation Respiratory: Yes Sleep Apnea Currently Using CPAP: Yes Currently Using BIPAP: Yes Cardiac: Yes High Cholesterol, Hypertension Neurological: No Reproductive Disorders: No Female Reproductive Disorders: Denies [employer] History: Hysterectomy Sexually Transmitted Disease: No HIV/AIDS: No Genitourinary: Yes (Incontinence-leaking) Gastrointestinal: Yes Gastroesophageal Reflux Musculoskeletal: Yes Arthritis, Chronic Back Pain Endocrine: Yes Diabetes, Non-Insulin dep Loss of Vision: Denies Hearing Impairment: Denies Cancer: No Psychosocial: No Integumentary: No Blood Disorders: No Family Medical History Reviewed Nursing Family Hx DENIES Physical Exam Vital Signs Vital Signs - First Documented 08/22/23 09:20 Temp 36.7 Pulse 99 Resp 18 B/P (MAP) 174/103 (126) Pulse Ox 96 Capillary Refill : Height/Weight/BMI Height: 5'3.00" Weight: 330lbs. 0.0oz. 149.846251df; 58.59 BMI Method:Stated General Appearance: WD/WN, no apparent distress HEENT: PERRL/EOMI, pharynx normal Neck: full range of motion, supple Respiratory: lungs clear, normal breath sounds Cardiovascular: regular rate, rhythm, no murmur Gastrointestinal: normal bowel sounds, soft, tenderness (Mild upper abdominal tenderness to palpation without rebound or guarding) Extremities: non-tender, normal inspection Back: normal inspection, no CVA tenderness Neurologic/Psychiatric: alert, oriented x 3 Progress/Results/Core Measures Results/Orders Lab Results Laboratory Tests Test 08/22/23 09:24 08/22/23 09:25 08/22/23 09:31 08/22/23 11:00 Range/Units Glucometer 149 H 70-110 MG/DL Influenza Type A (RT-PCR) Not Detected Not Detecte Influenza Type B (RT-PCR) Not Detected Not Detecte SARS-CoV-2 RNA (RT-PCR) Not Detected Not Detecte White Blood Count 4.9 4.3-11.0 10^3/uL Red Blood Count 5.04 3.80-5.11 10^6/uL Hemoglobin 13.3 11.5-16.0 g/dL Hematocrit 42 35-52 % Mean Corpuscular Volume 84 80-99 fL Mean Corpuscular Hemoglobin 26 25-34 pg Mean Corpuscular Hemoglobin Concent 31 L 32-36 g/dL Red Cell Distribution Width 13.5 10.0-14.5 % Platelet Count 326 130-400 10^3/uL Mean Platelet Volume 10.2 9.0-12.2 fL Immature Granulocyte % (Auto) 0 % Neutrophils (%) (Auto) 27 L 42-75 % Lymphocytes (%) (Auto) 40 12-44 % Monocytes (%) (Auto) 25 H 0-12 % Eosinophils (%) (Auto) 7 0-10 % Basophils (%) (Auto) 0 0-10 % Neutrophils # (Auto) 1.3 L 1.8-7.8 10^3/uL Lymphocytes # (Auto) 2.0 1.0-4.0 10^3/uL Monocytes # (Auto) 1.2 H 0.0-1.0 10^3/uL Eosinophils # (Auto) 0.3 0.0-0.3 10^3/uL Basophils # (Auto) 0.0 0.0-0.1 10^3/uL Immature Granulocyte # (Auto) 0.0 0.0-0.1 10^3/uL Neutrophils % (Manual) 33 % Lymphocytes % (Manual) 30 % Monocytes % (Manual) 25 % Eosinophils % (Manual) 9 % Basophils % (Manual) 0 % Metamyelocytes % % Band Neutrophils 0 % Reactive Lymphocytes 3 % Elliptocytes SLIGHT Sodium Level 140 135-145 MMOL/L Potassium Level 4.1 3.6-5.0 MMOL/L Chloride Level 107 98-107 MMOL/L Carbon Dioxide Level 23 21-32 MMOL/L Anion Gap 10 5-14 MMOL/L Blood Urea Nitrogen 12 7-18 MG/DL Creatinine 0.62 0.60-1.30 MG/DL Estimat Glomerular Filtration Rate 106 BUN/Creatinine Ratio 19 Glucose Level 160 H 70-105 MG/DL Calcium Level 9.3 8.5-10.1 MG/DL Corrected Calcium 9.8 8.5-10.1 MG/DL Magnesium Level 1.9 1.6-2.4 MG/DL Total Bilirubin 0.3 0.1-1.0 MG/DL Aspartate Amino Transf (AST/SGOT) 32 5-34 U/L Alanine Aminotransferase (ALT/SGPT) 24 0-55 U/L Alkaline Phosphatase 79 40-136 U/L C-Reactive Protein High Sensitivity 2.65 H 0.00-0.50 MG/DL Total Protein 7.7 6.4-8.2 GM/DL Albumin 3.4 3.2-4.5 GM/DL Urine Color ORANGE Urine Clarity CLOUDY Urine pH 5.5 5-9 Urine Specific [place] >=1.030 1.016-1.022 Urine Protein 1+ H NEGATIVE Urine Glucose (UA) NEGATIVE NEGATIVE Urine Ketones NEGATIVE NEGATIVE Urine Nitrite NEGATIVE NEGATIVE Urine Bilirubin 1+ H NEGATIVE Urine Urobilinogen 0.2 < = 1.0 MG/DL Urine Leukocyte Esterase NEGATIVE NEGATIVE Urine RBC (Auto) NEGATIVE NEGATIVE Urine RBC NONE /HPF Urine WBC 2-5 /HPF Urine Squamous Epithelial Cells 2-5 /HPF Urine Crystals PRESENT H /LPF Urine Amorphous Sediment RARE MARY URATES H /LPF Urine Bacteria MODERATE H /HPF Urine Casts NONE /LPF Urine Mucus MODERATE H /LPF Urine Culture Indicated YES My Orders Orders - JAIDEN GROSS MD Cbc And Automated Diff (08/22/23 09:33) Comprehensive Metabolic Panel (08/22/23 09:33) Hs C Reactive Protein (08/22/23 09:33) Magnesium (08/22/23 09:33) Influenza A And B By Pcr (08/22/23 09:33) Ondansetron Injection (Ondansetron Inj (08/22/23 09:45) Ns Iv 1000 Ml (Ns Iv 1000 Ml) (08/22/23 09:33) Ed Iv/Invasive Line Start (08/22/23 09:33) Covid 19 Inhouse Test (08/22/23 09:33) Manual Differential (08/22/23 09:31) Ua Culture If Indicated (08/22/23 10:54) Urine Culture (08/22/23 11:00) Medications Given in ED Current Medications Medications Dose Ordered Sig/Volodymyr Route Start Time Stop Time Status Last Admin Dose Admin Ondansetron HCl 4 mg ONCE ONCE IVP 08/22/23 09:45 08/22/23 09:46 DC 08/22/23 10:01 4 MG Vital Signs/I&O 08/22/23 09:20 Temp 36.7 Pulse 99 Resp 18 B/P (MAP) 174/103 (126) Pulse Ox 96 Progress Progress Note : Progress Note Seen and evaluated. IV, labs including CBC, CMP, CRP, magnesium ordered. Normal saline 1 L bolus and Zofran 4 mg IV ordered. Monitor patient. Differential diagnosis includes electrolyte abnormality, dehydration, viral syndrome abdominal pathology. Patient does have history of cholecystectomy. There is multiple episodes of GI illness going around currently with similar symptoms patient seems to be following typical course we will keep consideration for other abdominal pathology and consider further evaluation such as CT scan of the abdomen pelvis if indicated. This was discussed with the patient who agrees. Monitor patient. 1129: Labs reviewed and grossly nonconcerning. CBC shows normal white count without significant left shift. CMP grossly normal except slightly elevated blood sugar. CRP is negative. UA shows concentration but no UTI. No indication for CT scan given these labs. She is overall feeling better after fluids. Discharged home with return precautions. Patient verbalized understanding of instructions and agreement with plan. Departure Impression Primary Impression: Diarrhea Qualified Codes: R19.7 - Diarrhea, unspecified Additional Impressions: Dehydration Abdominal pain Qualified Codes: R10.10 - Upper abdominal pain, unspecified Disposition: 01 HOME, SELF-CARE Condition: Improved Departure-Patient Inst. Decision time for Depature: 11:30 Referrals: JUSTINO MAXWELL DO (PCP/Family) Primary Care Physician Patient Instructions: Abdominal Pain, Adult ED, Dehydration, Adult (DC), Diarrhea, Adult ED, Nausea and Vomiting, Adult (DC) Add. Discharge Instructions: All discharge instructions reviewed with patient and/or family. Voiced understanding. Clear or light diet for the next 24 hours and then advance as tolerated. Drink plenty of fluids by taking small sips frequently. Take medications as directed. You may take [id number] Tylenol/acetaminophen 1000 mg every 6-8 hours as needed for pain. Follow-up with your doctor in a few days for recheck. Return for worse pain, fever, vomiting, weakness, breathing problems or other concerns as needed. Scripts Ondansetron (Ondansetron Odt) 4 Mg Tab.rapdis 4 MG PO Q6H PRN for NAUSEA/VOMITING, #12 TAB 0 Refills Prov: JAIDEN GROSS MD 08/22/23 JAIDEN GROSS MD Aug 22, 2023 09:50
[2023-08-22 09:52] LABS: CREATININE SERUM 0.62 MG/DL (0.60-1.30)
[2023-08-22 09:55] LABS: MAGNESIUM 1.9 MG/DL (1.6-2.4)
[2023-08-22 10:14] LABS: BAND NEUTROPHILS 0 %; BASOPHILS % (MANUAL) 0 %; ELLIPT/OVALOCYTES SLIGHT; EOSINOPHILS % (MANUAL) 9 %; LYMPHOCYTES % (MANUAL) 30 %; MONOCYTES % (MANUAL) 25 %; NEUTROPHILS % (MANUAL) 33 %; REACTIVE LYMPHOCYTES 3 %
[2023-08-22 11:17] LABS: CLARITY,URINE CLOUDY; COLOR,URINE ORANGE
[2023-08-22 11:18] LABS: BACTERIA,URINE MODERATE /HPF; BILIRUBIN,URINE 1+ (NEGATIVE); GLUCOSE, URINE (UA) NEGATIVE (NEGATIVE); KETONES,URINE NEGATIVE (NEGATIVE); LEUKOCYTE ESTERASE ,URINE NEGATIVE (NEGATIVE); NITRITE,URINE NEGATIVE (NEGATIVE); PH,URINE 5.5 (5-9); PROTEIN,URINE 1+ (NEGATIVE)
[2023-08-22 11:19] LABS: AMORPHOUS SEDIMENT,UR RARE AMOR URATES /LPF
[2023-08-22] MEDS ORDERED: ONDA4TAB11 PO (11:32)
[2023-08-22 11:48] VITALS: BP 140/86
== END 2023-08-22 11:48 | disposition home or self-care (01) ==
LOC: EDUNIT# 09:13 → ER 09:15
DX: E86.0 Dehydration (principal); R19.7 Diarrhea, unspecified; R10.13 Epigastric pain; R10.11 Right upper quadrant pain; R10.12 Left upper quadrant pain; G47.30 Sleep apnea, unspecified; Z99.89 Dependence on other enabling machines and devices; Z90.49 Acquired absence of other specified parts of digestive tract
CPT/HCPCS: 36415; 80053; 81000; 82947; 83735; 85007; 85027; 86141; 87088; 87636; 96361; 96374